=== PATIENT | female | born 1950 | race Caucasian/White ===

== ENCOUNTER → 2016-09-08 | Outpatient (CLI) | payer OTHER, MEDICAID ==
[2016-05-29 16:08] VITALS: BP 170/105
--- NOTE | 2016-09-09 06:56 | CT ---
HISTORY: Neck pain, cervical spondylosis Study: CT cervical spine without contrast Comparison: None Technique: Axial non contrast images with coronal and sagittal reformats. Dose reduction procedures were used with MA/kv adjusted for body size. Findings: The prevertebral soft tissues are normal. The alignment is normal. The vertebral bodies are of avera ge height. Degenerative disc disease is present at C4-5 and C5-6. The pedicles, spinous processes, a nd posterior elements are intact. Spondylitic foraminal narrowing is present on the left at C4-5 and C5-6. Minimal spondylitic canal stenosis is present also at those levels. Atlantoaxial degenerative joint disease is present. Bilateral uncovertebral joint degenerative joint disease is present C4-5 C5-6. Diffuse bilateral facet degenerative joint disease is present. There are no obvious disc protr usions however CT of the cervical spine is not adequate for the evaluation of cervical disc disease and if cervical disc disease is a clinical consideration MRI would be of further diagnostic value. IMPRESSION: Degenerative disc disease, bilateral uncovertebral joint degenerative joint disease C4-5 C5-6 Spondylitic foraminal narrowing on the left C4-5, C5-6. Mild spondylitic canal stenosis C4-5, C5-6 Facet degenerative joint disease Reported By:
== END ==
LOC: RAD 13:02
PROVIDERS: ATTEND Physician Assistant Surgical
DX: M47.812 Spondylosis without myelopathy or radiculopathy, cervical region (principal)
CPT/HCPCS: 72125

== ENCOUNTER → 2017-03-27 | Outpatient (CLI) | payer OTHER, MEDICAID ==
[2016-05-29 16:08] VITALS: BP 170/105
[2017-03-27 14:07] LABS: BASOPHILS # (AUTO) 0.1 X10^3/uL (0.0-0.1); EOSINOPHILS # (AUTO) 0.2 x10^3/uL (0.0-0.2); EOSINOPHILS % (AUTO) 3.3 % (0.9-2.9); HEMATOCRIT 40.2 % (36.0-47.0); HEMOGLOBIN 13.9 g/dL (12.0-16.0); LYMPHOCYTES # (AUTO) 1.4 X10^3/uL (1.3-2.9); LYMPHOCYTES % (AUTO) 27.3 % (21.0-51.0); MEAN CORPUSCULAR HEMOGLOBIN 31.8 pg (27.0-34.0); MEAN CORPUSCULAR HGB CONC 34.6 g/dL (33.0-35.0); MEAN CORPUSCULAR VOLUME 91.7 fL (80.0-100.0); MEAN PLATELET VOLUME 7.8 fL (7.4-11.0); MONOCYTES # (AUTO) 0.4 x10^3/uL (0.3-0.8); MONOCYTES % (AUTO) 7.1 % (0.0-13.0); NEUTROPHILS # (AUTO) 3.2 x10^3/uL (2.2-4.8); NEUTROPHILS % (AUTO) 61.3 % (42.0-75.0); PLATELET COUNT 259 X10^3/uL (150.0-450.0); RED BLOOD COUNT 4.38 X10^6/uL (3.5-5.4); RED CELL DISTRIBUTION WIDTH 13.1 % (11.6-16.5); WHITE BLOOD COUNT 5.2 X10^3/uL (3.6-10.0)
[2017-03-27 14:17] LABS: ALANINE AMINOTRANSFERASE 15 Units/L (12-78); ALBUMIN 4.2 g/dL (3.4-5.0); ALKALINE PHOSPHATASE 122 Units/L (46-116); ASPARTATE AMINO TRANSFERASE 17 Units/L (15-37); BLOOD UREA NITROGEN 6 mg/dL (7-18); CALCIUM 9.3 mg/dL (8.5-10.1); CHLORIDE 92 mmol/L (98-107); CREATININE 0.55 mg/dL (0.55-1.02); SODIUM 132 mmol/L (136-145); eGFR BLACK RACES > 60 (>60); eGFR NON BLACK RACES > 60 (>60)
[2017-04-01 04:39] LABS: KAPPA LIGHT CHAINS 0.93 mg/dL (0.33-1.94); LAMBDA LIGHT CHAIN 0.84 mg/dL (0.57-2.63)
[2017-04-01 06:09] LABS: KAPPA/LAMBDA RATIO 1.11 (0.26-1.65)
[2017-04-01 16:08] LABS: ALBUMIN (SPEP) 4.93 g/dL (3.75-5.01); ALPHA-1 (SPEP) 0.45 g/dL (0.19-0.46); ALPHA-2 (SPEP) 0.88 g/dL (0.48-1.05); GAMMA (SPEP) 0.85 g/dL (0.62-1.51)
== END ==
LOC: LAB 13:35
PROVIDERS: ATTEND Internal Medicine Medical Oncology
DX: D47.2 Monoclonal gammopathy (principal)
CPT/HCPCS: 36415; 80053; 83883; 84165; 85025

== ENCOUNTER → 2017-03-30 | Outpatient (CLI) | payer OTHER, MEDICAID ==
[2016-05-29 16:08] VITALS: BP 170/105
== END ==
LOC: LAB 09:55
PROVIDERS: ATTEND Internal Medicine Rheumatology
DX: R77.8 Other specified abnormalities of plasma proteins (principal)
CPT/HCPCS: 84166

== ENCOUNTER → 2017-07-14 | Outpatient (CLI) | payer OTHER, MEDICAID ==
[2016-05-29 16:08] VITALS: BP 170/105
--- NOTE | 2017-07-15 08:45 | VAS ---
HISTORY: Carotid bruit Study: Carotid ultrasound Comparison: None Technique: Multiple vanegas scale and color flow Doppler images of the right and left carotid arterial s ystem were obtained. The vertebral arterial system was evaluated as well. Findings: The peak systolic velocity of the right ICA is 74 cm/sec. The peak systolic velocity of the left ICA is 99 cm/sec. The ICA/CCA ratio on the right is 0.9. The ICA/CCA ratio on the left is 1.3. Bilateral antegrade vertebral flow was noted. IMPRESSION: 1. No hemodynamically significant stenosis is appreciated. Reported By:
== END ==
LOC: RAD 09:57
PROVIDERS: ATTEND Internal Medicine Cardiovascular Disease
DX: R09.89 Other specified symptoms and signs involving the circulatory and respiratory systems (principal)
CPT/HCPCS: 93880

== ENCOUNTER → 2017-10-03 | Outpatient (CLI) | payer OTHER, MEDICAID ==
[2016-05-29 16:08] VITALS: BP 170/105
[2017-10-03 13:07] LABS: EOSINOPHILS # (AUTO) 0.2 x10^3/uL (0.0-0.2); EOSINOPHILS % (AUTO) 5.9 % (0.9-2.9); HEMATOCRIT 40.2 % (36.0-47.0); HEMOGLOBIN 13.9 g/dL (12.0-16.0); LYMPHOCYTES # (AUTO) 1.3 X10^3/uL (1.3-2.9); LYMPHOCYTES % (AUTO) 32.8 % (21.0-51.0); MEAN CORPUSCULAR HEMOGLOBIN 31.4 pg (27.0-34.0); MEAN CORPUSCULAR HGB CONC 34.6 g/dL (33.0-35.0); MEAN CORPUSCULAR VOLUME 90.7 fL (80.0-100.0); MEAN PLATELET VOLUME 7.4 fL (7.4-11.0); MONOCYTES # (AUTO) 0.3 x10^3/uL (0.3-0.8); NEUTROPHILS # (AUTO) 2.2 x10^3/uL (2.2-4.8); NEUTROPHILS % (AUTO) 53.3 % (42.0-75.0); PLATELET COUNT 255 X10^3/uL (150.0-450.0); RED BLOOD COUNT 4.44 X10^6/uL (3.5-5.4); RED CELL DISTRIBUTION WIDTH 12.9 % (11.6-16.5); WHITE BLOOD COUNT 4.1 X10^3/uL (3.6-10.0)
[2017-10-03 13:22] LABS: ALANINE AMINOTRANSFERASE 16 Units/L (12-78); ALBUMIN 4.1 g/dL (3.4-5.0); ALKALINE PHOSPHATASE 91 Units/L (46-116); ASPARTATE AMINO TRANSFERASE 15 Units/L (15-37); BLOOD UREA NITROGEN 7 mg/dL (7-18); CALCIUM 8.5 mg/dL (8.5-10.1); CARBON DIOXIDE 36.9 mmol/L (21-32); CHLORIDE 99 mmol/L (98-107); CREATININE 0.52 mg/dL (0.55-1.02); SODIUM 138 mmol/L (136-145); TOTAL PROTEIN 7.6 g/dL (6.4-8.2); eGFR BLACK RACES > 60 (>60); eGFR NON BLACK RACES > 60 (>60)
== END ==
LOC: LAB 12:43
PROVIDERS: ATTEND Internal Medicine Medical Oncology
DX: D47.2 Monoclonal gammopathy (principal)
CPT/HCPCS: 36415; 80053; 83883; 84165; 85025

== ENCOUNTER 2017-10-25 16:43 | Inpatient (IN) ==
[2017-10-25 17:17] LABS: BASOPHILS % (AUTO) 0.9 % (0.2-1.0); EOSINOPHILS # (AUTO) 0.1 x10^3/uL (0.0-0.2); EOSINOPHILS % (AUTO) 1.8 % (0.9-2.9); HEMOGLOBIN 12.9 g/dL (12.0-16.0); LYMPHOCYTES # (AUTO) 0.7 X10^3/uL (1.3-2.9); LYMPHOCYTES % (AUTO) 14.6 % (21.0-51.0); MEAN CORPUSCULAR HEMOGLOBIN 31.8 pg (27.0-34.0); MEAN CORPUSCULAR HGB CONC 34.9 g/dL (33.0-35.0); MEAN CORPUSCULAR VOLUME 91.3 fL (80.0-100.0); MEAN PLATELET VOLUME 8.1 fL (7.4-11.0); MONOCYTES # (AUTO) 0.7 x10^3/uL (0.3-0.8); MONOCYTES % (AUTO) 13.1 % (0.0-13.0); NEUTROPHILS # (AUTO) 3.5 x10^3/uL (2.2-4.8); NEUTROPHILS % (AUTO) 69.6 % (42.0-75.0); PLATELET COUNT 193 X10^3/uL (150.0-450.0); RED BLOOD COUNT 4.05 X10^6/uL (3.5-5.4); RED CELL DISTRIBUTION WIDTH 12.6 % (11.6-16.5)
[2017-10-25] MEDS ORDERED: DUONEB 0.5 MG/3 MG ONE (17:23)
[2017-10-25] MEDS ORDERED: DUONEB 0.5 MG/3 MG NEB ONE ×2 (17:27→18:38)
[2017-10-25 17:34] LABS: ALANINE AMINOTRANSFERASE 11 Units/L (12-78); ALBUMIN 3.6 g/dL (3.4-5.0); ALKALINE PHOSPHATASE 99 Units/L (46-116); ASPARTATE AMINO TRANSFERASE 13 Units/L (15-37); BLOOD UREA NITROGEN 5 mg/dL (7-18); CALCIUM 7.9 mg/dL (8.5-10.1); CARBON DIOXIDE 38.4 mmol/L (21-32); CHLORIDE 93 mmol/L (98-107); COR NA(FOR HYPERGLY) 136 mmol/L (136-145); CREATININE 0.47 mg/dL (0.55-1.02); SODIUM 135 mmol/L (136-145); eGFR NON BLACK RACES > 60 (>60)
[2017-10-25] MEDS ORDERED: TORADOL 15 MG VIAL IVP ONE (18:03)
[2017-10-25] MEDS ORDERED: TORADOL 15 MG VIAL ONE (18:05)
[2017-10-25] MEDS ORDERED: CATAPRES TAB 0.1 MG PO ONE (18:23)
[2017-10-25] MEDS ORDERED: CATAPRES TAB 0.1 MG ONE (18:24)
[2017-10-25] MEDS ORDERED: TORADOL 60 MG VIAL IM ONE (20:22)
--- NOTE | 2017-10-25 20:24 | DR.GENAD ---
HPI - PCP Primary Care Physician: carley - HPI Comment HPI Comment: NO FEVER. COUGHING, PRODUCTIVE, WHITISH SPUTUM. - Complaint/Symptoms Chief Complaint Doctors Comments: OXYGEN DROP THIS AM, PATIENT SOB ABS FEEL SICK. Chief Complaint:: pt stated this morning her 02 droped to the 80s and she felt bad. she called ems when her 02 was around 90 she stated she didnt want to go to sleep tonight and her o2 get lower again. - Nurses notes reviewed Nurses Notes Review: Yes - Source History Provided: Patient, EMS - Mode of Arrival Mode of Arrival: EMS - Timing Onset of Chief Complaint: 10/25/17 Came on: Suddenly - Duration Duration: Constant Duration: Hours - Severity Severity: Moderate PMH - PMH Past Medical History: Yes Past Medical History: Arthritis, COPD, Coronary Artery Disease, Hypertension Past Surgical History: Yes Surgical History: Angioplasty/Stents, , Other - Family History History of Family Medical Conditions: Yes Family Medical History: Diabetes Mellitus, Heart Failure, Hypertension - Social History Does any household member use tobacco: No Alcohol Use: None Do you use any recreational Drugs:: No Lives With: Alone Lives Where: Home - infectious screening In the last 2 months have you had wt loss of >10#?: NO Have you had fever, night sweats or hemotysis?: No Have you traveled outside the country in the last 6 months?: No Isolation: Standard ROS - Review of Systems Constitutional: No Symptoms Reported Eyes: No Symptoms Reported ENTM: Nose Congestion. negative: Ear Pain, Nose Discharge, Throat Pain Respiratoy: Productive Cough, Short of Breath, Wheezing. negative: Hemoptysis Cardiovascular: No Symptoms Reported Gastrointestinal/Abdominal: No Symptoms Reported Genitourinary: No Symptoms Reported Neurological: No Symptoms Reported Musculoskeletal: No Symptoms Reported Integumentary: No Symptoms Reported Hematologic/Lymphatic: No Symptoms Reported Endocrine: No Symptoms Reported All Other Systems: Reviewed and Negative PE - General Limitations: No Limitations General Appearance: Alert - Head Head Exam: Normal Inspection - Eyes Eye exam: Normal Appearance - ENT ENT Exam: Normal External Ear Exam TM/Canal Exam: Bilateral Normal Nose Exam: Normal Nose Exam Mouth Exam: Normal Inspection Throat Exam: Normal Inspection - Neck Neck Exam: Trachea Midline - Chest Chest Inspection: Symmetric Chest Wall Rise - Respiratory Respiratory Exam: Normal Lung Sounds Bilat Respiratory Exam: Bilateral Clear to Auscultation - Abdominal Exam Abdominal Exam: Normal Inspection, Normal Bowel Sounds, Soft - Extremities Extremities Exam: Normal Inspection - Back Back Exam: Normal Inspection - Neurologic Neurological Exam: Alert, Oriented X3 - Psychiatric Psychiatric Exam: Normal Affect, Normal Mood - Skin Skin Exam: Normal Color - Vital Signs Vitals: Temperature 98.9 F Pulse Rate 88 Respiratory Rate 16 Blood Pressure [Right Arm] 147/75 Blood Pressure [Left Arm] 144/78 Blood Pressure 177/85 O2 Sat by Pulse Oximetry 94 MDM - Differential Diagnosis Differential Diagnosis: PNEUMONIA, BRONCHITIS HYPOXIA, COPD EXACERBATION. Course - Treatment Treatment: SEE ORDERS. - Education/Counseling Education/Counseling: Patient, Education Educated On: Diagnosis, Needs for Follow Up ROR - Labs Reviewed Laboratory Results Reviewed?: Yes Result Diagrams: 10/26/17 04:58 10/26/17 04:58 - XRAY XRAY Interpreted by: Radiologist - EKG Rhythm: NSR (EKG NOTED) - Labs Reviewed Laboratory: WBC 5.0 X10^3/uL (3.6-10.0) 10/25/17 17:03 RBC 4.05 X10^6/uL (3.5-5.4) 10/25/17 17:03 Hgb 12.9 g/dL (12.0-16.0) 10/25/17 17:03 Hct 37.0 % (36.0-47.0) 10/25/17 17:03 MCV 91.3 fL (80.0-100.0) 10/25/17 17:03 MCH 31.8 pg (27.0-34.0) 10/25/17 17:03 MCHC 34.9 g/dL (33.0-35.0) 10/25/17 17:03 RDW 12.6 % (11.6-16.5) 10/25/17 17:03 Plt Count 193 X10^3/uL (150.0-450.0) 10/25/17 17:03 MPV 8.1 fL (7.4-11.0) 10/25/17 17:03 Neut % (Auto) 69.6 % (42.0-75.0) 10/25/17 17:03 Lymph % (Auto) 14.6 % (21.0-51.0) L 10/25/17 17:03 [place] % (Auto) 13.1 % (0.0-13.0) H 10/25/17 17:03 Eos % (Auto) 1.8 % (0.9-2.9) 10/25/17 17:03 Baso % (Auto) 0.9 % (0.2-1.0) 10/25/17 17:03 Neut # (Auto) 3.5 x10^3/uL (2.2-4.8) 10/25/17 17:03 Lymph # (Auto) 0.7 X10^3/uL (1.3-2.9) L 10/25/17 17:03 [place] # (Auto) 0.7 x10^3/uL (0.3-0.8) 10/25/17 17:03 Eos # (Auto) 0.1 x10^3/uL (0.0-0.2) 10/25/17 17:03 Baso # (Auto) 0.0 X10^3/uL (0.0-0.1) 10/25/17 17:03 Absolute Nucleated RBC 0.1 /100WBC 10/25/17 17:03 Sodium 135 mmol/L (136-145) L 10/25/17 17:03 Corrected Sodium 136 mmol/L (136-145) 10/25/17 17:03 Potassium 4.1 mmol/L (3.5-5.1) 10/25/17 17:03 Chloride 93 mmol/L (98-107) L 10/25/17 17:03 Carbon Dioxide 38.4 mmol/L (21-32) H 10/25/17 17:03 BUN 5 mg/dL (7-18) L 10/25/17 17:03 Creatinine 0.47 mg/dL (0.55-1.02) L 10/25/17 17:03 Est GFR (MDRD) Af Amer > 60 (>60) 10/25/17 17:03 Est GFR (MDRD) Non-Af > 60 (>60) 10/25/17 17:03 Glucose 123 mg/dL (65-99) H 10/25/17 17:03 Calcium 7.9 mg/dL (8.5-10.1) L 10/25/17 17:03 Corrected Calcium TNP 10/25/17 17:03 Total Bilirubin 0.20 mg/dL (0.2-1.0) 10/25/17 17:03 AST 13 Units/L (15-37) L 10/25/17 17:03 ALT 11 Units/L (12-78) L 10/25/17 17:03 Alkaline Phosphatase 99 Units/L (46-116) 10/25/17 17:03 C-Reactive Protein 55.50 mg/L (0-3.0) H 10/25/17 17:03 Total Protein 7.0 g/dL (6.4-8.2) 10/25/17 17:03 Albumin 3.6 g/dL (3.4-5.0) 10/25/17 17:03 Globulin 3.4 g/dL (2.5-4.5) 10/25/17 17:03 Albumin/Globulin Ratio 1.1 Ratio (1.1-2.1) 10/25/17 17:03 - Diagnosis Discharge Problem: COPD exacerbation Hypertension Qualifiers: Hypertension type: unspecified Qualified Code(s): I10 - Essential (primary) hypertension - Discharge Plan Disposition: ADMITTED INPATIENT Condition: Stable
[2017-10-25] MEDS ORDERED: TORADOL 60 MG VIAL ONE (20:32)
[2017-10-25] MEDS ORDERED: NIFEDIPINE CAP 10 MG ONE (20:38)
[2017-10-25] MEDS ORDERED: NIFEDIPINE CAP 10 MG PO ONE (20:43)
[2017-10-25 21:18] LABS: CKMB % 3.3 % (<4); CREATINE KINASE 73 Units/L (26-192); CREATINE KINASE MB 2.4 ng/mL (0-4.0); TROPONIN I < 0.02 ng/mL (0-1.5)
[2017-10-25] MEDS ORDERED: SOLU-Medrol 40 MG VIAL IVP ONE (21:23)
[2017-10-25 21:24] LABS: ABG BASE EXCESS 15.3 mmol/L (-2.0-2.0)
[2017-10-25 21:26] LABS: ABG ALLEN TEST POS; ABG HCO3 42.5 mmol/L (22-26)
[2017-10-25] MEDS ORDERED: SOLU-Medrol 40 MG VIAL ONE (21:27)
[2017-10-25] MEDS ORDERED: MORPHINE SULFATE INJ 2 MG INJ IVP PRN (22:30)
[2017-10-25] MEDS: NS 1000 ML 1,000 ML IV SCH (23:51)
[2017-10-25 23:57] LABS: CKMB % 3.3 % (<4); CREATINE KINASE 105 Units/L (26-192); CREATINE KINASE MB 3.5 ng/mL (0-4.0); TROPONIN I < 0.02 ng/mL (0-1.5)
[2017-10-26] MEDS ORDERED: VALIUM INJ IVP ONE (00:17)
[2017-10-26] MEDS ORDERED: XANAX ONE (00:19)
[2017-10-26] MEDS ORDERED: XANAX PO ONE (00:20)
[2017-10-26 04:19] VITALS: BMI 18.9
[2017-10-26 06:14] LABS: BASOPHILS % (AUTO) 0.3 % (0.2-1.0); EOSINOPHILS % (AUTO) 0.1 % (0.9-2.9); HEMATOCRIT 38.1 % (36.0-47.0); HEMOGLOBIN 13.4 g/dL (12.0-16.0); LYMPHOCYTES # (AUTO) 0.2 X10^3/uL (1.3-2.9); LYMPHOCYTES % (AUTO) 7.4 % (21.0-51.0); MEAN CORPUSCULAR HEMOGLOBIN 31.6 pg (27.0-34.0); MEAN CORPUSCULAR HGB CONC 35.1 g/dL (33.0-35.0); MEAN CORPUSCULAR VOLUME 89.9 fL (80.0-100.0); MEAN PLATELET VOLUME 8.5 fL (7.4-11.0); MONOCYTES # (AUTO) 0.1 x10^3/uL (0.3-0.8); MONOCYTES % (AUTO) 2.4 % (0.0-13.0); NEUTROPHILS # (AUTO) 2.9 x10^3/uL (2.2-4.8); NEUTROPHILS % (AUTO) 89.8 % (42.0-75.0); PLATELET COUNT 205 X10^3/uL (150.0-450.0); RED BLOOD COUNT 4.24 X10^6/uL (3.5-5.4); RED CELL DISTRIBUTION WIDTH 12.9 % (11.6-16.5); WHITE BLOOD COUNT 3.2 X10^3/uL (3.6-10.0)
[2017-10-26 06:58] LABS: ALANINE AMINOTRANSFERASE 11 Units/L (12-78); ALBUMIN 3.7 g/dL (3.4-5.0); ALKALINE PHOSPHATASE 100 Units/L (46-116); ASPARTATE AMINO TRANSFERASE < 6 Units/L (15-37); BLOOD UREA NITROGEN 5 mg/dL (7-18); CALCIUM 8.1 mg/dL (8.5-10.1); CARBON DIOXIDE 39.1 mmol/L (21-32); CHLORIDE 93 mmol/L (98-107); CHOL/HDL RATIO 2.3 (0.0-5.0); CHOLESTEROL 175 mg/dL (0-200); CKMB % 3.3 % (<4); COR NA(FOR HYPERGLY) 136 mmol/L (136-145); CREATINE KINASE 114 Units/L (26-192); CREATINE KINASE MB 3.8 ng/mL (0-4.0); HDL CHOLESTEROL 76 mg/dL (40-60); MAGNESIUM 1.8 mg/dL (1.7-2.9); SODIUM 135 mmol/L (136-145); TOTAL PROTEIN 7.3 g/dL (6.4-8.2); TRIGLYCERIDES 57 mg/dL (0-150); TROPONIN I < 0.02 ng/mL (0-1.5); eGFR NON BLACK RACES > 60 (>60)
[2017-10-26] MEDS: DUONEB 0.5 MG/3 MG NEB SCH ×2 (12:15→17:07)
[2017-10-26] MEDS ORDERED: ZESTRIL TAB 20 MG ONE (12:46)
[2017-10-26] MEDS: ROCEPHIN 1 GRAM IV PREMIX IV SCH (12:47)
[2017-10-26] MEDS: NORVASC TAB 5 MG PO SCH (12:48)
[2017-10-26] MEDS: ZESTRIL TAB 20 MG PO SCH (12:48)
[2017-10-26] MEDS: SOLU-Medrol 125 MG VIAL IVP SCH ×3 (12:48→21:01)
[2017-10-26] MEDS: NORCO 10/325 TAB PO PRN (17:31)
[2017-10-26] MEDS: NS 1000 ML 1,000 ML IV SCH (17:32)
[2017-10-26] MEDS: XANAX PO PRN (17:32)
[2017-10-27] MEDS: DUONEB 0.5 MG/3 MG NEB SCH ×5 (01:10→16:00)
[2017-10-27] MEDS: NS 1000 ML 1,000 ML IV SCH ×2 (02:41→16:32)
[2017-10-27] MEDS: NORCO 10/325 TAB PO PRN ×3 (05:31→22:42)
[2017-10-27] MEDS: SOLU-Medrol 125 MG VIAL IVP SCH ×3 (05:31→21:40)
[2017-10-27] MEDS ORDERED: ZESTRIL TAB 20 MG ONE (09:12)
[2017-10-27] MEDS: ZESTRIL TAB 20 MG PO SCH (09:14)
[2017-10-27] MEDS: ROCEPHIN 1 GRAM IV PREMIX IV SCH (09:15)
[2017-10-27] MEDS: NORVASC TAB 5 MG PO SCH (09:15)
[2017-10-27] MEDS: XANAX PO PRN ×2 (09:15→17:52)
[2017-10-27] MEDS ORDERED: TYLENOL 325 MG TAB PO PRN (10:11)
[2017-10-27] MEDS: NICOTINE PATCH TD SCH (10:59)
[2017-10-27] MEDS ORDERED: RESTORIL CAP 15 MG PO PRN (22:47)
[2017-10-28] MEDS: DUONEB 0.5 MG/3 MG NEB SCH ×3 (01:10→06:03)
[2017-10-28] MEDS: NS 1000 ML 1,000 ML IV SCH (05:03)
[2017-10-28] MEDS: SOLU-Medrol 125 MG VIAL IVP SCH (05:40)
[2017-10-28] MEDS: XANAX PO PRN (05:43)
[2017-10-28] MEDS ORDERED: ZESTRIL TAB 20 MG ONE (08:36)
[2017-10-28] MEDS: ROCEPHIN 1 GRAM IV PREMIX IV SCH (08:43)
[2017-10-28] MEDS: NICOTINE PATCH TD SCH (08:43)
[2017-10-28] MEDS: NORVASC TAB 5 MG PO SCH (08:43)
[2017-10-28] MEDS: NORCO 10/325 TAB PO PRN (08:43)
[2017-10-28] MEDS: ZESTRIL TAB 20 MG PO SCH (08:43)
[2017-10-28 14:51] VITALS: BP 157/72
== END 2017-10-28 15:10 | disposition home or self-care (01) | DRG 192 ==
LOC: ER 16:43 → MED/SURG 22:24
PROVIDERS: ADMIT Internal Medicine; ATTEND Internal Medicine
DX: I25.10 Atherosclerotic heart disease of native coronary artery without angina pectoris; R94.31 Abnormal electrocardiogram [ECG] [EKG]; R79.82 Elevated C-reactive protein (CRP); M81.8 Other osteoporosis without current pathological fracture; I10 Essential (primary) hypertension; R06.02 Shortness of breath; J44.1 Chronic obstructive pulmonary disease with (acute) exacerbation; M41.86 Other forms of scoliosis, lumbar region; J20.8 Acute bronchitis due to other specified organisms
CPT/HCPCS: 36415; 36600; 80053; 80061; 82550; 82553; 82803; 83735; 84484; 85025; 86140; 87070; 87205; 93005; 93010; 94640; 94669; 94760; 96365; 96374; 96375; 99282; 99284; A4222; J0696; J1885; J2270; J2920; J2930; J3360; J3490; J7030; J7620

== ENCOUNTER 2019-04-06 22:08 | Inpatient (IN) ==
[2019-04-06] MEDS ORDERED: DUONEB 0.5 MG/3 MG NEB ONE (22:23)
[2019-04-06] MEDS ORDERED: DUONEB 0.5 MG/3 MG ONE (22:30)
--- NOTE | 2019-04-06 22:41 | RAD ---
Chest, 1 view Indication: Shortness of breath, cough, congestion Comparison: 10/23/2017 Findings: The left lung apex was excluded. The cardiac silhouette size and aortic tortuosity are similar to prior. There are chronic interstitial changes of the lungs with hyperinflation suggestive for COPD. There are patchy bilateral infiltrates, most marked within the right upper lobe and left mid to lower lung. No significant pleural effusion or pneumothorax. Impression: Patchy bilateral lung opacities most suggestive for multifocal pneumonia, although asymmetric edema could have a similar appearance. Chronic changes of COPD. Reported By:
[2019-04-06 22:42] LABS: BASOPHILS % (AUTO) 0.2 % (0.2-1.0); HEMATOCRIT 37.3 % (36.0-47.0); HEMOGLOBIN 12.8 g/dL (12.0-16.0); LYMPHOCYTES # (AUTO) 1.1 X10^3/uL (1.3-2.9); LYMPHOCYTES % (AUTO) 7.8 % (21.0-51.0); MEAN CORPUSCULAR HEMOGLOBIN 31.1 pg (27.0-34.0); MEAN CORPUSCULAR HGB CONC 34.2 g/dL (33.0-35.0); MEAN CORPUSCULAR VOLUME 90.9 fL (80.0-100.0); MEAN PLATELET VOLUME 7.4 fL (7.4-11.0); MONOCYTES # (AUTO) 1.6 x10^3/uL (0.3-0.8); MONOCYTES % (AUTO) 11.4 % (0.0-13.0); NEUTROPHILS # (AUTO) 11.5 x10^3/uL (2.2-4.8); NEUTROPHILS % (AUTO) 80.6 % (42.0-75.0); PLATELET COUNT 481 X10^3/uL (150.0-450.0); RED CELL DISTRIBUTION WIDTH 12.7 % (11.6-16.5); WHITE BLOOD COUNT 14.3 X10^3/uL (3.6-10.0)
--- NOTE | 2019-04-06 23:06 | DR.SOBA ---
HPI - Time Seen Time seen: 22:25 - Primary Care Physician Primary Care Physician: LENA - Complaints Chief Complaint Doctors Comments: Cough, cold, congestion and sob w/wheezing for the past 2-3 days which has been worsening causing presentation; she wears oxygen 15/12 and it had to be turned up;no fever/chills/n/v/d. Chief Complaint:: PT C/O C/C/C X 3 DAYS AND SOB X 2 DAYS - Reviewed Nurses Notes Reviewed: Yes - Source History Provided: Patient - Mode of Arrival Mode of Arrival: Ambulatory - Timing Onset of Chief Complaint: 04/04/19 PMH - PMH Past Medical History: Yes Past Medical History: Arthritis, COPD, Coronary Artery Disease, Depression, Hypertension Past Surgical History: Yes Surgical History: Angioplasty/Stents, , Other - Family History History of Family Medical Conditions: Yes Family Medical History: Diabetes Mellitus, Heart Failure, Hypertension - Social History Type of Tobacco Use: Cigarettes Does any household member use tobacco: No Alcohol Use: None Do you use any recreational Drugs:: No Lives With: Family Lives Where: Home - infectious screening In the last 2 months have you had wt loss of >10#?: NO Have you had fever, night sweats or hemotysis?: No Have you traveled outside the country in the last 6 months?: No Isolation: Standard ROS - Review of Systems Constitutional: See HPI, Malaise, Weakness Eyes: No Symptoms Reported ENTM: No Symptoms Reported Respiratoy: See HPI, Short of Breath, Wheezing Cardiovascular: See HPI, Chest Pain Gastrointestinal/Abdominal: No Symptoms Reported Genitourinary: No Symptoms Reported Neurological: No Symptoms Reported Musculoskeletal: Joint Pain Integumentary: No Symptoms Reported Hematologic/Lymphatic: No Symptoms Reported Psychiatric: No Symptoms Reported PE - General Limitations: No Limitations General Appearance: Alert, In No Apparent Distress - Head Head Exam: Normal Inspection, Atraumatic - Eyes Eye exam: Normal Appearance - ENT ENT Exam: Normal Exam, Normal Oropharynx - Neck Neck Exam: Normal Inspection - Respiratory Respiratory Exam: Normal Lung Sounds Bilat Respiratory Exam: Bilateral Clear to Auscultation, Bilateral Decreased Breath Sounds - Cardiovascular Cardiovascular Exam: Regular Rate, Normal Rhythm - Abdominal Exam Abdominal Exam: Normal Inspection, Normal Bowel Sounds, Soft - Back Back Exam: Normal Inspection - Neurologic Neurological Exam: Alert, Oriented X3 - Psychiatric Psychiatric Exam: Normal Affect - Skin Skin Exam: Warm, Dry - Vital Signs Vitals: Temperature 98.5 F Pulse Rate [Apical] 106 Pulse Rate 95 Respiratory Rate 22 Blood Pressure [Right Arm] 157/72 Blood Pressure [Left Arm] 160/95 Blood Pressure 148/75 O2 Sat by Pulse Oximetry 98 ROR - Labs Reviewed Laboratory Results Reviewed?: Yes Result Diagrams: 04/06/19 22:36 04/06/19 22:36 - Labs Reviewed Laboratory: WBC 14.3 X10^3/uL (3.6-10.0) H 04/06/19 22:36 RBC 4.10 X10^6/uL (3.5-5.4) 04/06/19 22:36 Hgb 12.8 g/dL (12.0-16.0) 04/06/19 22:36 Hct 37.3 % (36.0-47.0) 04/06/19 22:36 MCV 90.9 fL (80.0-100.0) 04/06/19 22:36 MCH 31.1 pg (27.0-34.0) 04/06/19 22:36 MCHC 34.2 g/dL (33.0-35.0) 04/06/19 22:36 RDW 12.7 % (11.6-16.5) 04/06/19 22:36 Plt Count 481 X10^3/uL (150.0-450.0) H 04/06/19 22:36 MPV 7.4 fL (7.4-11.0) 04/06/19 22:36 Neut % (Auto) 80.6 % (42.0-75.0) H 04/06/19 22:36 Lymph % (Auto) 7.8 % (21.0-51.0) L 04/06/19 22:36 [place] % (Auto) 11.4 % (0.0-13.0) 04/06/19 22:36 Eos % (Auto) 0.0 % (0.9-2.9) L 04/06/19 22:36 Baso % (Auto) 0.2 % (0.2-1.0) 04/06/19 22:36 Neut # (Auto) 11.5 x10^3/uL (2.2-4.8) H 04/06/19 22:36 Lymph # (Auto) 1.1 X10^3/uL (1.3-2.9) L 04/06/19 22:36 [place] # (Auto) 1.6 x10^3/uL (0.3-0.8) H 04/06/19 22:36 Eos # (Auto) 0.0 x10^3/uL (0.0-0.2) 04/06/19 22:36 Baso # (Auto) 0.0 X10^3/uL (0.0-0.1) 04/06/19 22:36 Absolute Nucleated RBC 0.0 /100WBC 04/06/19 22:36 Sodium 132 mmol/L (136-145) L 04/06/19 22:36 Corrected Sodium 133 mmol/L (136-145) L 04/06/19 22:36 Potassium 3.8 mmol/L (3.5-5.1) 04/06/19 22:36 Chloride 90 mmol/L (98-107) L 04/06/19 22:36 Carbon Dioxide 39.9 mmol/L (21-32) H 04/06/19 22:36 BUN 17 mg/dL (7-18) 04/06/19 22:36 Creatinine 0.45 mg/dL (0.55-1.02) L 04/06/19 22:36 Est GFR (MDRD) Af Amer > 60 (>60) 04/06/19 22:36 Est GFR (MDRD) Non-Af > 60 (>60) 04/06/19 22:36 Glucose 133 mg/dL (65-99) H 04/06/19 22:36 Calcium 9.4 mg/dL (8.5-10.1) 04/06/19 22:36 Corrected Calcium 10.0 mg/dL (8.5-10.1) 04/06/19 22:36 Total Bilirubin 0.30 mg/dL (0.2-1.0) 04/06/19 22:36 AST 20 Units/L (15-37) 04/06/19 22:36 ALT 9 Units/L (12-78) L 04/06/19 22:36 Alkaline Phosphatase 156 Units/L (46-116) H 04/06/19 22:36 Creatine Kinase 72 Units/L (26-192) 04/06/19 22:36 CK-MB (CK-2) 13.7 ng/mL (0-4.0) H* 04/06/19 22:36 CK/CKMB % Calc 19.0 % (<4) 04/06/19 22:36 Troponin I 1.19 ng/mL (0-1.5) 04/06/19 22:36 B-Natriuretic Peptide 2230 pg/mL (0-79) H* 04/06/19 22:36 Total Protein 7.3 g/dL (6.4-8.2) 04/06/19 22:36 Albumin 3.2 g/dL (3.4-5.0) L 04/06/19 22:36 Globulin 4.1 g/dL (2.5-4.5) 04/06/19 22:36 Albumin/Globulin Ratio 0.8 Ratio (1.1-2.1) L 04/06/19 22:36 Opioid - Opioid Risk Tool Age (Poncho box if 16-45): No Total: 0 Total Score Risk Category: Low Risk - Diagnosis Discharge Problem: Multifocal pneumonia CHF exacerbation Qualifiers: Heart failure type: unspecified Qualified Code(s): I50.9 - Heart failure, unspecified COPD (chronic obstructive pulmonary disease) Qualifiers: COPD type: COPD with acute exacerbation Qualified Code(s): J44.1 - Chronic obstructive pulmonary disease with (acute) exacerbation - Discharge Plan Disposition: ADMITTED INPATIENT Condition: Stable - Follow ups/Referrals Follow ups/Referrals: NFD,None [Primary Care Provider] - 3 days - Instructions Instructions: Community-Acquired Pneumonia, Adult
[2019-04-06 23:22] LABS: ALANINE AMINOTRANSFERASE 9 Units/L (12-78); ALBUMIN 3.2 g/dL (3.4-5.0); ALKALINE PHOSPHATASE 156 Units/L (46-116); ASPARTATE AMINO TRANSFERASE 20 Units/L (15-37); BLOOD UREA NITROGEN 17 mg/dL (7-18); CALCIUM 9.4 mg/dL (8.5-10.1); CHLORIDE 90 mmol/L (98-107); COR NA(FOR HYPERGLY) 133 mmol/L (136-145); CREATINE KINASE 72 Units/L (26-192); CREATININE 0.45 mg/dL (0.55-1.02); SODIUM 132 mmol/L (136-145); TOTAL PROTEIN 7.3 g/dL (6.4-8.2); TROPONIN I 1.19 ng/mL (0-1.5); eGFR NON BLACK RACES > 60 (>60)
[2019-04-06 23:26] LABS: CARBON DIOXIDE 39.9 mmol/L (21-32)
[2019-04-06 23:27] LABS: CREATINE KINASE MB 13.7 ng/mL (0-4.0)
[2019-04-07] MEDS ORDERED: SOLU-Medrol 125 MG VIAL IVP ONE (00:16)
[2019-04-07] MEDS ORDERED: LASIX IVP ONE ×2 (00:16→00:34)
[2019-04-07] MEDS ORDERED: ROCEPHIN VIAL 1 GRAM IV STA (00:17)
[2019-04-07] MEDS ORDERED: ZITHROMAX INJ 500 MG VIAL 500 MG in NS 250 ML IV 250 ML IV SCH ×2 (00:18→21:00)
[2019-04-07] MEDS ORDERED: NS 500 ML IV 500 ML IV ONE (00:34)
[2019-04-07] MEDS ORDERED: ZITHROMAX INJ 500 MG VIAL IV ONE (00:34)
[2019-04-07] MEDS ORDERED: SOLU-Medrol 125 MG VIAL ONE (00:34)
[2019-04-07] MEDS ORDERED: ROCEPHIN VIAL 1 GRAM ONE (00:35)
[2019-04-07] MEDS ORDERED: NS 250 ML IV 250 ML IV ONE (00:35)
[2019-04-07] MEDS: NS 500 ML IV 500 ML IV SCH (01:03)
[2019-04-07 01:45] LABS: BILIRUBIN,URINE NEGATIVE (NEGATIVE); BLOOD/HEMOGLOBIN,URINE 3+ (NEGATIVE); GLUCOSE, URINE 2+ (NEGATIVE); KETONES,URINE 1+ (NEGATIVE); LEUKOCYTE ESTERASE ,URINE 1+ (NEGATIVE); NITRITES,URINE NEGATIVE (NEGATIVE); PROTEIN,URINE 3+ (NEGATIVE); UROBILINOGEN,URINE NORMAL (NORMAL)
[2019-04-07 01:57] LABS: APPEARANCE,URINE CLOUDY (CLEAR); COLOR,URINE YELLOW (YELLOW)
[2019-04-07 01:58] LABS: BACTERIA,URINE 4+ /HPF (NEGATIVE); SQUAMOUS EPITHELIAL CELL,UR RARE /HPF (NEGATIVE)
[2019-04-07 02:56] VITALS: BMI 16.2
[2019-04-07] MEDS ORDERED: MILK OF MAGNESIA PO PRN (03:40)
[2019-04-07] MEDS ORDERED: NORCO 5/325 MG TAB PO PRN (04:44)
[2019-04-07 04:50] LABS: BASOPHILS % (AUTO) 0.2 % (0.2-1.0); HEMATOCRIT 38.8 % (36.0-47.0); HEMOGLOBIN 13.3 g/dL (12.0-16.0); LYMPHOCYTES # (AUTO) 0.2 X10^3/uL (1.3-2.9); LYMPHOCYTES % (AUTO) 1.8 % (21.0-51.0); MEAN CORPUSCULAR HGB CONC 34.3 g/dL (33.0-35.0); MEAN CORPUSCULAR VOLUME 93.1 fL (80.0-100.0); MEAN PLATELET VOLUME 8.3 fL (7.4-11.0); MONOCYTES # (AUTO) 0.4 x10^3/uL (0.3-0.8); PLATELET COUNT 479 X10^3/uL (150.0-450.0); RED BLOOD COUNT 4.17 X10^6/uL (3.5-5.4); RED CELL DISTRIBUTION WIDTH 12.4 % (11.6-16.5); WHITE BLOOD COUNT 13.7 X10^3/uL (3.6-10.0)
[2019-04-07 05:02] LABS: TROPONIN I 1.25 ng/mL (0-1.5)
[2019-04-07 05:04] LABS: ALANINE AMINOTRANSFERASE 11 Units/L (12-78); ALBUMIN 3.3 g/dL (3.4-5.0); ALKALINE PHOSPHATASE 157 Units/L (46-116); ASPARTATE AMINO TRANSFERASE 20 Units/L (15-37); BLOOD UREA NITROGEN 15 mg/dL (7-18); CALCIUM 9.2 mg/dL (8.5-10.1); CHLORIDE 88 mmol/L (98-107); COR CA(FOR HYPOALB) 9.8 mg/dL (8.5-10.1); COR NA(FOR HYPERGLY) 135 mmol/L (136-145); CREATININE 0.43 mg/dL (0.55-1.02); MAGNESIUM 1.9 mg/dL (1.7-2.9); SODIUM 134 mmol/L (136-145); TOTAL PROTEIN 7.7 g/dL (6.4-8.2); eGFR NON BLACK RACES > 60 (>60)
[2019-04-07 05:09] LABS: CREATINE KINASE MB 14.2 ng/mL (0-4.0)
[2019-04-07 05:11] LABS: CARBON DIOXIDE 41.9 mmol/L (21-32)
[2019-04-07 05:56] LABS: BAND NEUTROPHILS % 5 % (0-10); PLATELET MORPHOLOGY COMMENT NORMAL (NORMAL)
[2019-04-07] MEDS ORDERED: KLOR-CON PO PRN (05:59)
[2019-04-07] MEDS ORDERED: MICRO K EXTEN CAP 10 MEQ PO PRN (05:59)
[2019-04-07] MEDS ORDERED: K-RIDER 10 MEQ/NS 100 ML 10 MEQ/100 ML BAG IV PRN (05:59)
[2019-04-07] MEDS ORDERED: POTASSIUM CHLORIDE LIQ 20 MEQ UDC PO PRN (05:59)
[2019-04-07] MEDS ORDERED: POTASSIUM CHL 60 MEQ/NS 0.45% 500 ML IV PRN (05:59)
[2019-04-07] MEDS ORDERED: POTASSIUM CHL 40 MEQ/NS 0.45% 500 ML IV PRN (05:59)
[2019-04-07] MEDS ORDERED: K-DUR TAB 20 MEQ PO PRN (05:59)
[2019-04-07] MEDS ORDERED: PRAVASTATIN 10 MG PO SCH (09:00)
[2019-04-07] MEDS ORDERED: ZESTRIL TAB 10 MG PO SCH (09:00)
[2019-04-07] MEDS ORDERED: DUONEB 0.5 MG/3 MG NEB SCH (09:00)
[2019-04-07] MEDS ORDERED: NORVASC TAB 5 MG PO SCH (09:00)
[2019-04-07] MEDS ORDERED: DULOXETINE 20 MG PO SCH (09:00)
[2019-04-07] MEDS ORDERED: XANAX PO SCH (09:00)
[2019-04-07 09:28] LABS: ABG BASE EXCESS 23.7 mmol/L (-2.0-2.0); ABG HCO3 51.7 mmol/L (22-26)
[2019-04-07] MEDS ORDERED: NS 100 ML IV 100 ML IV ONE (09:30)
[2019-04-07 10:03] LABS: MYCOPLASMA PNEUMONIAE IGM AB NEGATIVE (NEGATIVE)
[2019-04-07] MEDS ORDERED: ZOFRAN INJ 4 MG VIAL IVP PRN (10:24)
[2019-04-07] MEDS: SINGULAIR TAB 10 MG PO SCH (10:25)
[2019-04-07] MEDS: SOMA TAB 350 MG PO SCH ×2 (10:26→21:19)
[2019-04-07] MEDS: ZANTAC PO SCH (10:26)
--- NOTE | 2019-04-07 10:26 | DR.H&P ---
H&P History & Physical for Day of: H&P Date: 04/07/19 Chief Complaint Chief Complaint: cough, SOB and congestion Allergies Allergies Allergy/AdvReac Type Severity Reaction Status Date / Time amoxicillin Allergy Verified 10/25/17 16:45 History of Present Illness History of Present Illness: Ms. Moore is a 69y/o female with Severe COPD on continuous home oxygen, CAD s/p PCI (~3 stents), last done in [place] 6 years ago, chronic neck and back pain on opiates, osteoporosis, scoliosis and severe kyphosis presents with worsening SOB, productive cough and congestion that started 3 days ago. She has been feeling extremely weak and mostly bed bound. She reports increased SOB and chest congestion. She reports pleuritic chest pain with deep breathing and cough. Denies sick contact. ED work-up - CXR: multifocal pneumonia - Trop 1.19, CKMB: 14 BNP: 2230 Elevated WBCs - Meds: received Rocephin, azithromycin, IV Lasix 40 mg and IV solumedrol Past Medical History Past Medical History: Arthritis, COPD, Coronary Artery Disease, Depression and Hypertension Past Surgical History Surgical History: Family History Family Medical History: Diabetes Mellitus, Cancer and Hypertension Social History Does patient currently use any type of tobacco product: No Have you used tobacco products in the last 12 months: Yes Type of Tobacco Use: Cigarettes How many years tobacco product used: 50 Does any household member use tobacco: No Alcohol Use: None Drug Use: None Prescription drug monitoring program results: PDMP reviewed and no concerns identified Medications Home Medications: amoxicillin Allergy (Verified 10/25/17 16:45) CONTINUE taking the following medications duloxetine 20 mg PO BID 04/06/19 [History] montelukast 10 mg PO DAILY 04/06/19 [History] oxycodone-acetaminophen 1 tab PO TID PRN 04/06/19 [History] ranitidine HCl 150 mg PO DAILY 04/06/19 [History] theophylline 300 mg PO DAILY 04/06/19 [History] Labs Result Diagrams: 04/07/19 03:50 04/07/19 03:50 Labs: 04/06/19 23:24 Sputum - Expectorated Sputum - Final Laboratory WBC 13.7 X10^3/uL (3.6-10.0) H 04/07/19 03:50 RBC 4.17 X10^6/uL (3.5-5.4) 04/07/19 03:50 Hgb 13.3 g/dL (12.0-16.0) 04/07/19 03:50 Hct 38.8 % (36.0-47.0) 04/07/19 03:50 MCV 93.1 fL (80.0-100.0) 04/07/19 03:50 MCH 32.0 pg (27.0-34.0) 04/07/19 03:50 MCHC 34.3 g/dL (33.0-35.0) 04/07/19 03:50 RDW 12.4 % (11.6-16.5) 04/07/19 03:50 Plt Count 479 X10^3/uL (150.0-450.0) H 04/07/19 03:50 Plt Count Comment Adequate (ADEQUATE) 04/07/19 03:50 MPV 8.3 fL (7.4-11.0) 04/07/19 03:50 Neut % (Auto) 95.0 % (42.0-75.0) H 04/07/19 03:50 Lymph % (Auto) 1.8 % (21.0-51.0) L 04/07/19 03:50 [place] % (Auto) 3.0 % (0.0-13.0) 04/07/19 03:50 Eos % (Auto) 0.0 % (0.9-2.9) L 04/07/19 03:50 Baso % (Auto) 0.2 % (0.2-1.0) 04/07/19 03:50 Neut # (Auto) 13.0 x10^3/uL (2.2-4.8) H 04/07/19 03:50 Lymph # (Auto) 0.2 X10^3/uL (1.3-2.9) L 04/07/19 03:50 [place] # (Auto) 0.4 x10^3/uL (0.3-0.8) 04/07/19 03:50 Eos # (Auto) 0.0 x10^3/uL (0.0-0.2) 04/07/19 03:50 Baso # (Auto) 0.0 X10^3/uL (0.0-0.1) 04/07/19 03:50 Absolute Nucleated RBC 0.0 /100WBC 04/07/19 03:50 Total Counted 100 04/07/19 03:50 Neutrophils % (Manual) 91 % (39-76) H 04/07/19 03:50 Band Neutrophils % 5 % (0-10) 04/07/19 03:50 Lymphocytes % (Manual) 2 % (13-43) L 04/07/19 03:50 Monocytes % (Manual) 2 % (4-9) L 04/07/19 03:50 Plt Morphology Comment Normal (NORMAL) 04/07/19 03:50 RBC Morphology Normal (NORMAL) 04/07/19 03:50 Sample Site Rb 04/07/19 09:20 ABG pH 7.470 (7.35-7.45) H 04/07/19 09:20 ABG pCO2 71.0 mmHg (35.0-45.0) H* 04/07/19 09:20 ABG pO2 72.0 mmHg (80.0-100.0) L 04/07/19 09:20 ABG HCO3 51.7 mmol/L (22-26) H* 04/07/19 09:20 ABG O2 Saturation 95.0 % (90-100) 04/07/19 09:20 ABG Base Excess 23.7 mmol/L (-2.0-2.0) H 04/07/19 09:20 Isaac Test Na 04/07/19 09:20 A-a Gradient 67.0 mmHg 04/07/19 09:20 FiO2 32.0 04/07/19 09:20 Blood Gas Comments Pt vance well. cdn 04/07/19 09:20 Sodium 134 mmol/L (136-145) L 04/07/19 03:50 Corrected Sodium 135 mmol/L (136-145) L 04/07/19 03:50 Potassium 3.4 mmol/L (3.5-5.1) L 04/07/19 03:50 Chloride 88 mmol/L (98-107) L 04/07/19 03:50 Carbon Dioxide 41.9 mmol/L (21-32) H* 04/07/19 03:50 BUN 15 mg/dL (7-18) 04/07/19 03:50 Creatinine 0.43 mg/dL (0.55-1.02) L 04/07/19 03:50 Est GFR (MDRD) Af Amer > 60 (>60) 04/07/19 03:50 Est GFR (MDRD) Non-Af > 60 (>60) 04/07/19 03:50 Glucose 129 mg/dL (65-99) H 04/07/19 03:50 Calcium 9.2 mg/dL (8.5-10.1) 04/07/19 03:50 Corrected Calcium 9.8 mg/dL (8.5-10.1) 04/07/19 03:50 Magnesium 1.9 mg/dL (1.7-2.9) 04/07/19 03:50 Total Bilirubin 0.30 mg/dL (0.2-1.0) 04/07/19 03:50 AST 20 Units/L (15-37) 04/07/19 03:50 ALT 11 Units/L (12-78) L 04/07/19 03:50 Alkaline Phosphatase 157 Units/L (46-116) H 04/07/19 03:50 Creatine Kinase 79 Units/L (26-192) 04/07/19 03:50 CK-MB (CK-2) 14.2 ng/mL (0-4.0) H* 04/07/19 03:50 CK/CKMB % Calc 18.0 % (<4) 04/07/19 03:50 Troponin I 1.25 ng/mL (0-1.5) 04/07/19 03:50 B-Natriuretic Peptide 2230 pg/mL (0-79) H* 04/06/19 22:36 Total Protein 7.7 g/dL (6.4-8.2) 04/07/19 03:50 Albumin 3.3 g/dL (3.4-5.0) L 04/07/19 03:50 Globulin 4.4 g/dL (2.5-4.5) 04/07/19 03:50 Albumin/Globulin Ratio 0.8 Ratio (1.1-2.1) L 04/07/19 03:50 Specimen Type Catherized urine 04/07/19 01:20 Urine Color Yellow (YELLOW) 04/07/19 01:20 Urine Appearance Cloudy (CLEAR) 04/07/19 01:20 Urine pH 8.0 (5.0 - 8.0) 04/07/19 01:20 Ur Specific Cost 1.015 (1.000-1.030) 04/07/19 01:20 Urine Protein 3+ (NEGATIVE) 04/07/19 01:20 Urine Glucose (UA) 2+ (NEGATIVE) 04/07/19 01:20 Urine Ketones 1+ (NEGATIVE) 04/07/19 01:20 Urine Occult Blood 3+ (NEGATIVE) 04/07/19 01:20 Urine Nitrite Negative (NEGATIVE) 04/07/19 01:20 Urine Bilirubin Negative (NEGATIVE) 04/07/19 01:20 Urine Urobilinogen Normal (NORMAL) 04/07/19 01:20 Ur Leukocyte Esterase 1+ (NEGATIVE) 04/07/19 01:20 Urine RBC 3-5 /HPF (0-3) A 04/07/19 01:20 Urine WBC 0-2 /HPF (0-5) 04/07/19 01:20 Ur Squamous Epith Cells Rare /HPF (NEGATIVE) 04/07/19 01:20 Urine Bacteria 4+ /HPF (NEGATIVE) 04/07/19 01:20 Ur Culture Indicated? Yes/culture set up 04/07/19 01:20 Mycoplasma pneumon IgG Negative (NEGATIVE) 04/07/19 03:50 Review of Systems Constitutional: Weakness and Malaise Eyes: No Symptoms Reported ENT: No Symptoms Reported Respiratory: Cough, Shortness of Breath, Hemoptysis, SOB with Excertion, Pleuritic Pain and Sputum Cardiovascular: Chest Pain Gastrointestinal: Nausea Genitourinary: No Symptoms Reported Musculoskeletal: Shoulder Pain, Back Pain and Neck Pain Skin: No Symptoms Reported Neurological: No Symptoms Reported Physical Exam Vital Signs: Temperature 97 F Pulse Rate [Apical] 106 Pulse Rate 91 Respiratory Rate 23 Blood Pressure [Right Arm] 157/72 Blood Pressure [Left Arm] 160/95 Blood Pressure 143/77 O2 Sat by Pulse Oximetry 99 Oriented: Normal and Other (veyr frail cachectic female ) Eyes: Normal Throat: Normal Respiratory: Diminished Throughout Cardiovascular: Tachycardia Auscultation: Bowel Sounds: Normal Palpation: Normal Skin: Normal Musculoskeletal: Back:Thoracic, Back:Lumbar and Deformity (severe kyphosis and scoliosis ) Psychiatric: Anxiety Mood Description: Anxious Affect: Anxious Speech Pattern: Clear (patient not able to speak in complete sentences due to feeling short of breath ) and Appropriate Assessment/Plan (1) NSTEMI (non-ST elevated myocardial infarction): Narrative Support Text: Denies active chest pain, has been having pleuritic chest pain with cough. Hx of CAD s/p PCI, 3 stents, last done 6 yrs ago in [place], prior to that in [place]. Status: Acute Plan: EKG: Sinus tach, possible MAT troponin elevation: 1.25 > 1.19 > 1.03 CKMB elevation Start heparin drip, asa, statin. Discussed with patient about cath, she is not sure if she can go through that because of her weakness. She will let me know l ater today so we can initiate the transfer to a cath facility. (2) COPD exacerbation: Narrative Support Text: Patient with severe COPD on continuous oxygen. Status: Acute Plan: ABG reviewed: chronic CO2 retainer, continue IV abx, duonebs, steroi ds and oxygen. Currently on 3 L which she uses at home (3) Multifocal pneumonia: Status: Acute Plan: CXR: consistent with patchy multifocal pneumonia CTPE: negative for PE, Advanced emphysematous changes with bronchiolar thickening in the right lower lobe Switch Rocephin to Cefepime, continue azithromycin. Mycoplasma and flu pending Follow sputum cultures (4) CHF exacerbation: Qualifiers: Heart failure type: unspecified Qualified Code(s): I50.9 - Heart failure, unspecified Status: Acute Plan: BNP elevated 2230 on admission, received one dose of IV Lasix Echo done today: EF 54%. diastolic dysfunction, normal wall motion. No signs of fluid overload on exam. Not on Lasix at home (5) Metabolic alkalosis with respiratory acidosis: Status: Acute (6) Scoliosis (and kyphoscoliosis), idiopathic: Status: Acute Plan: Severe thoracic kyphosis with chronic appearing T8 compression fracture. Continue pain control with home dose Percocet (7) Anxiety: Status: Acute (8) Hypertension: Qualifiers: Hypertension type: unspecified Qualified Code(s): I10 - Essential (primary) hypertension Status: Chronic Plan: resume home medications (9) DJD (degenerative joint disease): Qualifiers: Osteoarthritis location: multiple joints Osteoarthritis type: unspecified Qualified Code(s): M15.9 - Polyosteoarthritis, unspecified Status: Acute (10) Generalized weakness: Status: Acute Review Patient was examined?: Yes
[2019-04-07] MEDS: PERCOCET TAB 5/325 MG PO PRN ×2 (10:30→18:53)
[2019-04-07] MEDS: XANAX PO PRN ×2 (10:30→21:18)
[2019-04-07 10:34] LABS: CKMB % 10.3 % (<4); TROPONIN I 1.03 ng/mL (0-1.5)
[2019-04-07 10:37] LABS: CREATINE KINASE MB 10.3 ng/mL (0-4.0)
[2019-04-07] MEDS ORDERED: NS 100 ML IV + SPIKE MINIBAG* 0 ML IV ONE (10:57)
[2019-04-07] MEDS: MAXIPIME VIAL 1 GRAM 1 G in NS 50 ML IV + SPIKE MINIBAG* 50 ML IV SCH ×2 (11:00→21:20)
--- NOTE | 2019-04-07 11:12 | CT ---
HISTORY: Shortness of breath Study: CTA chest Comparison: None Technique: Multiple axial images of the chest were obtained after the administration of IV contrast. 3D reconstructions were performed utilizing radial maximum intensity projection imaging. Dose reduction techniques including Automated Exposure Control (AEC) and adjustment of mA and kV were utilized. Findings: Contrast opacification of the pulmonary arteries is adequate to the level of the segmental branches. No evidence of acute pulmonary emboli. Heart size is normal with calcified plaque throughout the coronary arteries. No pericardial effusion. The aorta appears normal in course and caliber. Lungs are hyperinflated centrilobular emphysematous changes noted. Mild infiltrate is seen in the lingula for which developing pneumonia is not excluded. Partially visualized infiltrates are seen in the upper lung zones. The lung apices were not excluded due to difficulty scanning the patient. Mild bronchiolar thickening is seen in the left lower lobe. There is severe kyphosis of the thoracic spine of almost 90. There is a compression fracture of T8 that appears chronic. The visualized portions of the upper abdomen are grossly unremarkable. IMPRESSION: 1. Partially visualized infiltrates in the upper lung zones and in the lingula for which pneumonia is not excluded. Please note the lung apices were not included in the field of view due to difficulty scanning the patient. 2. Advanced emphysematous changes with bronchiolar thickening in the right lower lobe. 3. Coronary atherosclerotic disease. 4. Severe thoracic kyphosis with chronic appearing T8 compression fracture. 5. No acute pulmonary embolism. Reported By:
[2019-04-07] MEDS: XOPENEX 1.25 MG/3 ML NEBULE NEB SCH ×2 (12:14→16:35)
[2019-04-07] MEDS ORDERED: HEPARIN SODIUM IN D5W 25,000 UNITS/500 ML BAG IV PRN (12:46)
[2019-04-07] MEDS ORDERED: ASPIRIN 81 MG CHEWTAB ONE (12:52)
[2019-04-07] MEDS ORDERED: ASPIRIN 81 MG CHEWTAB PO SCH ×3 (13:00→14:00)
[2019-04-07] MEDS ORDERED: ASPIRIN 81 MG CHEWTAB PO ONE (13:39)
[2019-04-07] MEDS: PREDNISONE TAB 20 MG PO SCH (14:03)
[2019-04-07] MEDS: LIPITOR TAB 40 MG PO SCH (14:03)
[2019-04-07] MEDS: NEURONTIN CAP 300 MG PO SCH ×2 (14:03→21:19)
[2019-04-07] MEDS ORDERED: HEPARIN SODIUM INJ 5000 UNITS IVP ONE ×2 (14:43→22:52)
[2019-04-07 15:19] LABS: CKMB % 17.3 % (<4); TROPONIN I 1.28 ng/mL (0-1.5)
[2019-04-07 15:20] LABS: CREATINE KINASE MB 11.9 ng/mL (0-4.0)
[2019-04-07] MEDS ORDERED: COLACE CAP 100 MG PO SCH (21:00)
[2019-04-07] MEDS: CYMBALTA PO SCH (21:19)
[2019-04-07] MEDS ORDERED: HEPARIN SODIUM INJ 5000 UNITS ONE (22:57)
[2019-04-08] MEDS: XOPENEX 1.25 MG/3 ML NEBULE NEB SCH ×3 (00:42→12:09)
[2019-04-08] MEDS ORDERED: ROCEPHIN VIAL 1 GRAM IV SCH (00:45)
[2019-04-08] MEDS: NEURONTIN CAP 300 MG PO SCH ×2 (05:28→14:59)
[2019-04-08] MEDS: NS 500 ML IV 500 ML IV SCH (05:28)
[2019-04-08] MEDS: XANAX PO PRN ×2 (05:29→14:59)
[2019-04-08 05:46] LABS: BASOPHILS % (AUTO) 0.3 % (0.2-1.0); HEMATOCRIT 39.3 % (36.0-47.0); HEMOGLOBIN 13.1 g/dL (12.0-16.0); LYMPHOCYTES # (AUTO) 0.6 X10^3/uL (1.3-2.9); LYMPHOCYTES % (AUTO) 5.4 % (21.0-51.0); MEAN CORPUSCULAR HEMOGLOBIN 30.7 pg (27.0-34.0); MEAN CORPUSCULAR HGB CONC 33.3 g/dL (33.0-35.0); MEAN CORPUSCULAR VOLUME 92.3 fL (80.0-100.0); MEAN PLATELET VOLUME 7.7 fL (7.4-11.0); MONOCYTES # (AUTO) 0.7 x10^3/uL (0.3-0.8); MONOCYTES % (AUTO) 6.7 % (0.0-13.0); NEUTROPHILS # (AUTO) 9.1 x10^3/uL (2.2-4.8); NEUTROPHILS % (AUTO) 87.6 % (42.0-75.0); PLATELET COUNT 510 X10^3/uL (150.0-450.0); RED BLOOD COUNT 4.26 X10^6/uL (3.5-5.4); RED CELL DISTRIBUTION WIDTH 12.9 % (11.6-16.5); WHITE BLOOD COUNT 10.4 X10^3/uL (3.6-10.0)
[2019-04-08] MEDS ORDERED: HEPARIN SODIUM INJ 5000 UNITS IVP ONE ×2 (06:36→13:51)
[2019-04-08] MEDS ORDERED: HEPARIN SODIUM INJ 5000 UNITS ONE ×2 (06:38→13:54)
[2019-04-08 07:29] LABS: ALBUMIN 2.9 g/dL (3.4-5.0); CALCIUM 8.7 mg/dL (8.5-10.1); CHOL/HDL RATIO 3.5 (0.0-5.0); CKMB % 13.4 % (<4); COR CA(FOR HYPOALB) 9.6 mg/dL (8.5-10.1); CREATININE 1.15 mg/dL (0.55-1.02); TOTAL PROTEIN 6.7 g/dL (6.4-8.2); TROPONIN I 0.43 ng/mL (0-1.5)
[2019-04-08 07:31] LABS: CARBON DIOXIDE 44.5 mmol/L (21-32); CREATINE KINASE MB 4.7 ng/mL (0-4.0)
[2019-04-08] MEDS ORDERED: LASIX IVP SCH (09:00)
[2019-04-08] MEDS ORDERED: ASPIRIN 81 MG CHEWTAB PO SCH (09:00)
--- NOTE | 2019-04-08 09:11 | PCM.PROG ---
Progress Note Progress Note for Day of Date of Exam: 04/08/19 Subjective Subjective: Patient seen this AM, family at bedside. Patient reports sleeping well, denies chest pain or pressure. She reports improvement in cough, not coughing as much as she was prior to admission. She was having chest tightness with cough which has improved. She reports improvement in her breathing. Patient's labs reviewed this AM, trop trending down to 0.43. EKG reviewed. Patient and family agreed to have the patient transferred to [facility] for further evaluation by cardiology due to patient's presentation and risk factors due to underling CAD. Past Medical Family Social History Past Med/Fam/Surg Hx: No changes since H&P Allergies: Allergies amoxicillin Allergy (Verified 10/25/17 16:45) Review of Systems ROS: No change since H&P Vital Signs and I&O's Vital Signs: Temperature 97.7 F Pulse Rate [Apical] 106 Pulse Rate 80 Respiratory Rate 43 Blood Pressure [Right Arm] 157/72 Blood Pressure [Left Arm] 160/95 Blood Pressure 95/52 O2 Sat by Pulse Oximetry 96 Intake and Output: Intake & Output 04/05/19 04/06/19 04/07/19 04/08/19 23:59 23:59 23:59 23:59 Intake Total 1168 / 1168 128 / 128 Output Total 1700 / 1700 Balance -532 / -532 128 / 128 Physical Exam Oriented: Normal and Other (veyr frail cachectic female ) Eyes: Normal Throat: Normal Respiratory: Diminished Cardiovascular: Tachycardia Auscultation: Bowel Sounds: Normal Tenderness: Normal Skin: Normal Musculoskeletal: Back:Thoracic, Back:Lumbar and Deformity (severe kyphosis and scoliosis ) Psychiatric: Anxiety Mood Description: Anxious Affect: Anxious Speech Pattern: Clear and Appropriate Laboratory and Diagnostics Result Diagrams: 04/08/19 05:20 04/08/19 06:41 Labs: 04/06/19 23:24 Sputum - Expectorated Sputum - Final Laboratory WBC 10.4 X10^3/uL (3.6-10.0) H 04/08/19 05:20 RBC 4.26 X10^6/uL (3.5-5.4) 04/08/19 05:20 Hgb 13.1 g/dL (12.0-16.0) 04/08/19 05:20 Hct 39.3 % (36.0-47.0) 04/08/19 05:20 MCV 92.3 fL (80.0-100.0) 04/08/19 05:20 MCH 30.7 pg (27.0-34.0) 04/08/19 05:20 MCHC 33.3 g/dL (33.0-35.0) 04/08/19 05:20 RDW 12.9 % (11.6-16.5) 04/08/19 05:20 Plt Count 510 X10^3/uL (150.0-450.0) H 04/08/19 05:20 Plt Count Comment Adequate (ADEQUATE) 04/07/19 03:50 MPV 7.7 fL (7.4-11.0) 04/08/19 05:20 Neut % (Auto) 87.6 % (42.0-75.0) H 04/08/19 05:20 Lymph % (Auto) 5.4 % (21.0-51.0) L 04/08/19 05:20 [place] % (Auto) 6.7 % (0.0-13.0) 04/08/19 05:20 Eos % (Auto) 0.0 % (0.9-2.9) L 04/08/19 05:20 Baso % (Auto) 0.3 % (0.2-1.0) 04/08/19 05:20 Neut # (Auto) 9.1 x10^3/uL (2.2-4.8) H 04/08/19 05:20 Lymph # (Auto) 0.6 X10^3/uL (1.3-2.9) L 04/08/19 05:20 [place] # (Auto) 0.7 x10^3/uL (0.3-0.8) 04/08/19 05:20 Eos # (Auto) 0.0 x10^3/uL (0.0-0.2) 04/08/19 05:20 Baso # (Auto) 0.0 X10^3/uL (0.0-0.1) 04/08/19 05:20 Absolute Nucleated RBC 0.0 /100WBC 04/08/19 05:20 Total Counted 100 04/07/19 03:50 Neutrophils % (Manual) 91 % (39-76) H 04/07/19 03:50 Band Neutrophils % 5 % (0-10) 04/07/19 03:50 Lymphocytes % (Manual) 2 % (13-43) L 04/07/19 03:50 Monocytes % (Manual) 2 % (4-9) L 04/07/19 03:50 Plt Morphology Comment Normal (NORMAL) 04/07/19 03:50 RBC Morphology Normal (NORMAL) 04/07/19 03:50 PT 12.7 SECONDS (11.8-14.3) 04/07/19 14:25 INR Target Range - 04/07/19 14:25 INR 0.99 (0.8-1.3) 04/07/19 14:25 APTT 34.0 SECONDS (22.9-36.5) 04/08/19 05:20 PTT Comment - 04/08/19 05:20 Sample Site Rb 04/07/19 09:20 ABG pH 7.470 (7.35-7.45) H 04/07/19 09:20 ABG pCO2 71.0 mmHg (35.0-45.0) H* 04/07/19 09:20 ABG pO2 72.0 mmHg (80.0-100.0) L 04/07/19 09:20 ABG HCO3 51.7 mmol/L (22-26) H* 04/07/19 09:20 ABG O2 Saturation 95.0 % (90-100) 04/07/19 09:20 ABG Base Excess 23.7 mmol/L (-2.0-2.0) H 04/07/19 09:20 Isaac Test Na 04/07/19 09:20 A-a Gradient 67.0 mmHg 04/07/19 09:20 FiO2 32.0 04/07/19 09:20 Blood Gas Comments Pt vance well. cdn 04/07/19 09:20 Sodium 135 mmol/L (136-145) L 04/08/19 06:41 Corrected Sodium 135 mmol/L (136-145) L 04/08/19 06:41 Potassium 4.4 mmol/L (3.5-5.1) 04/08/19 06:41 Chloride 90 mmol/L (98-107) L 04/08/19 06:41 Carbon Dioxide 44.5 mmol/L (21-32) H* 04/08/19 06:41 BUN 39 mg/dL (7-18) H 04/08/19 06:41 Creatinine 1.15 mg/dL (0.55-1.02) H 04/08/19 06:41 Est GFR (MDRD) Af Amer 60 (>60) 04/08/19 06:41 Est GFR (MDRD) Non-Af 50 (>60) L 04/08/19 06:41 Glucose 118 mg/dL (65-99) H 04/08/19 06:41 Calcium 8.7 mg/dL (8.5-10.1) 04/08/19 06:41 Corrected Calcium 9.6 mg/dL (8.5-10.1) 04/08/19 06:41 Magnesium 1.9 mg/dL (1.7-2.9) 04/07/19 03:50 Total Bilirubin 0.10 mg/dL (0.2-1.0) L 04/08/19 06:41 AST 14 Units/L (15-37) L 04/08/19 06:41 ALT 10 Units/L (12-78) L 04/08/19 06:41 Alkaline Phosphatase 120 Units/L (46-116) H 04/08/19 06:41 Creatine Kinase 35 Units/L (26-192) 04/08/19 06:41 CK-MB (CK-2) 4.7 ng/mL (0-4.0) H* 04/08/19 06:41 CK/CKMB % Calc 13.4 % (<4) 04/08/19 06:41 Troponin I 0.43 ng/mL (0-1.5) 04/08/19 06:41 B-Natriuretic Peptide 2230 pg/mL (0-79) H* 04/06/19 22:36 Total Protein 6.7 g/dL (6.4-8.2) 04/08/19 06:41 Albumin 2.9 g/dL (3.4-5.0) L 04/08/19 06:41 Globulin 3.8 g/dL (2.5-4.5) 04/08/19 06:41 Albumin/Globulin Ratio 0.8 Ratio (1.1-2.1) L 04/08/19 06:41 Triglycerides 159 mg/dL (0-150) H 04/08/19 06:41 Cholesterol 204 mg/dL (0-200) H 04/08/19 06:41 LDL Cholesterol, Calc 113 mg/dL (0-100) H 04/08/19 06:41 HDL Cholesterol 59 mg/dL (40-60) 04/08/19 06:41 Cholesterol/HDL Ratio 3.5 (0.0-5.0) 04/08/19 06:41 Specimen Type Catherized urine 04/07/19 01:20 Urine Color Yellow (YELLOW) 04/07/19 01:20 Urine Appearance Cloudy (CLEAR) 04/07/19 01:20 Urine pH 8.0 (5.0 - 8.0) 04/07/19 01:20 Ur Specific [place] 1.015 (1.000-1.030) 04/07/19 01:20 Urine Protein 3+ (NEGATIVE) 04/07/19 01:20 Urine Glucose (UA) 2+ (NEGATIVE) 04/07/19 01:20 Urine Ketones 1+ (NEGATIVE) 04/07/19 01:20 Urine Occult Blood 3+ (NEGATIVE) 04/07/19 01:20 Urine Nitrite Negative (NEGATIVE) 04/07/19 01:20 Urine Bilirubin Negative (NEGATIVE) 04/07/19 01:20 Urine Urobilinogen Normal (NORMAL) 04/07/19 01:20 Ur Leukocyte Esterase 1+ (NEGATIVE) 04/07/19 01:20 Urine RBC 3-5 /HPF (0-3) A 04/07/19 01:20 Urine WBC 0-2 /HPF (0-5) 04/07/19 01:20 Ur Squamous Epith Cells Rare /HPF (NEGATIVE) 04/07/19 01:20 Urine Bacteria 4+ /HPF (NEGATIVE) 04/07/19 01:20 Ur Culture Indicated? Yes/culture set up 04/07/19 01:20 Influenza Type A (PCR) Negative (NEGATIVE) 04/07/19 12:20 Influenza Type B (PCR) Negative (NEGATIVE) 04/07/19 12:20 Mycoplasma pneumon IgG Negative (NEGATIVE) 04/07/19 03:50 Plan (1) NSTEMI (non-ST elevated myocardial infarction): Status: Acute Plan: EKG: Sinus tach, possible MAT troponin trending down 0.43 CMKB: 4 Continue heparin drip, asa, statin. Discussed with patient and family about being transferred to a facility with cardiology and cath. Patient is high risk due to prev hx of CAD with PCI. Would benefit from further evaluation by cardiojames glass for a possible cath. Will initiate transfer to [facility]. (2) COPD exacerbation: Status: Acute Plan: continue IV abx, duonebs, steroids and oxygen. Currently on 3 L which she uses at home (3) Multifocal pneumonia: Status: Acute Plan: CXR: consistent with patchy multifocal pneumonia CTPE: negative for PE, Advanced emphysematous changes with bronchiolar thickening in the right lower lobe. WBC trending down. Continue Cefepime and azithromycin. Flu negative Follow sputum cultures (4) CHF exacerbation: Status: Acute Qualifiers: Heart failure type: unspecified Qualified Code(s): I50.9 - Heart failure, unspecified Plan: BNP elevated 2230 on admission, received one dose of IV Lasix Echo done today: EF 54%. diastolic dysfunction, normal wall motion. No signs of fluid overload on exam. Not on Lasix at home (5) Metabolic alkalosis with respiratory acidosis: Status: Acute Plan: gentle hydration (6) Scoliosis (and kyphoscoliosis), idiopathic: Status: Acute Plan: Severe thoracic kyphosis with chronic appearing T8 compression fracture. Continue pain control with home dose Percocet (7) Anxiety: Status: Acute (8) Hypertension: Status: Chronic Qualifiers: Hypertension type: unspecified Qualified Code(s): I10 - Essential (primary) hypertension Plan: Hypotension, will hold Norvasc and Lisinopril, last BP 111/52 (9) DJD (degenerative joint disease): Status: Acute Qualifiers: Osteoarthritis location: multiple joints Osteoarthritis type: unspecified Qualified Code(s): M15.9 - Polyosteoarthritis, unspecified (10) Generalized weakness: Status: Acute (11) KRISTINE (acute kidney injury): Status: Acute Plan: Cr: 1.15 likely due to dehydration and post contrast, will start gentle hydration
[2019-04-08] MEDS ORDERED: NS 1000 ML 1,000 ML IV SCH (10:00)
[2019-04-08] MEDS: MAXIPIME VIAL 1 GRAM 1 G in NS 50 ML IV + SPIKE MINIBAG* 50 ML IV SCH (10:13)
[2019-04-08] MEDS: ZANTAC PO SCH (10:13)
[2019-04-08] MEDS: PREDNISONE TAB 20 MG PO SCH (10:14)
[2019-04-08] MEDS: SINGULAIR TAB 10 MG PO SCH (10:14)
[2019-04-08] MEDS: CYMBALTA PO SCH (10:14)
[2019-04-08] MEDS: SOMA TAB 350 MG PO SCH (10:14)
[2019-04-08] MEDS: LIPITOR TAB 40 MG PO SCH (10:15)
--- NOTE | 2019-04-08 13:19 | W.DIS.FURT ---
Summary of Discharge Discharge Summary of Date Date of Exam: 04/08/19 Admission Date Date of Admission: 04/06/19 Admission Diagnosis Hospital Course: Ms. Moore is a 69y/o female with a PMH of Severe COPD on continuous home oxygen 3L, CAD s/p PCI, HTN, Anxiety, severe kyphosis and scoliosis presented with worsening SOB, productive cough and chest discomfort. She was found to have pneumonia on admission with COPD exacerbation. She was started on IV abx and solumderol. She had elevated BNP, recieved a dose of IV lasix. Labs showed elevated troponin at 1.25, 1.19, 1.28 , elevated CKMB and with EKG concerning for multifocal atrial tachycardia. CTPE was negative for PE. Due to elevated tropinins and with a hx of CAD, patient was started on heparin drip. Repeat troponin the following day was 0.43 with similar EKG findings. Due to patient being high risk for cardiac ischemia with a hx of PCI, not on asa or statin ,elevated troponin and abnormal EKG, it was decided to transfer patient to another facility for cardio evaluation for a possible cath. Patient was initially reluctant to transfer but after further discussion with her daughters and sister, patient agreed for transfer. She was trasferred to [facility] in [place]. Patient was hemodynamically stable on transfer. She will follow up with PCP post discharge. Vital Signs: Vital Signs (72 hours) 04/06/19 22:21 04/06/19 22:30 04/06/19 23:00 Temperature 98.5 F Pulse Rate 99 H Pulse Rate [Apical] 89 106 H Respiratory Rate 22 Blood Pressure 135/65 Blood Pressure [Left Arm] 136/78 160/95 O2 Sat by Pulse Oximetry 98 96 98 04/06/19 23:15 04/06/19 23:29 04/06/19 23:30 Temperature Pulse Rate 86 91 H 90 Pulse Rate [Apical] Respiratory Rate Blood Pressure 140/73 Blood Pressure [Left Arm] O2 Sat by Pulse Oximetry 96 98 97 04/07/19 00:00 04/07/19 00:05 04/07/19 00:43 Temperature Pulse Rate 97 H 95 H 91 H Pulse Rate [Apical] Respiratory Rate Blood Pressure 148/75 Blood Pressure [Left Arm] O2 Sat by Pulse Oximetry 98 04/07/19 02:59 04/07/19 03:00 04/07/19 04:00 Temperature 99.4 F Pulse Rate 100 H 97 H 91 H Pulse Rate [Apical] Respiratory Rate 17 20 25 H Blood Pressure 140/72 110/58 Blood Pressure [Left Arm] O2 Sat by Pulse Oximetry 98 98 99 04/07/19 05:00 04/07/19 05:11 04/07/19 06:00 Temperature 97 F L Pulse Rate 110 H 91 H Pulse Rate [Apical] Respiratory Rate 30 H 25 H 26 H Blood Pressure 127/73 143/77 Blood Pressure [Left Arm] O2 Sat by Pulse Oximetry 99 99 04/07/19 06:11 04/07/19 07:00 04/07/19 08:00 Temperature 98.7 F Pulse Rate 84 107 H Pulse Rate [Apical] Respiratory Rate 23 22 21 Blood Pressure 123/61 131/86 Blood Pressure [Left Arm] O2 Sat by Pulse Oximetry 100 96 04/07/19 09:00 04/07/19 10:03 04/07/19 10:30 Temperature Pulse Rate 93 H 107 H Pulse Rate [Apical] Respiratory Rate 19 29 H 25 H Blood Pressure 140/83 Blood Pressure [Left Arm] O2 Sat by Pulse Oximetry 100 92 L 04/07/19 11:00 04/07/19 11:30 04/07/19 11:45 Temperature Pulse Rate 109 H 85 Pulse Rate [Apical] Respiratory Rate 27 H 20 20 Blood Pressure 113/58 113/58 Blood Pressure [Left Arm] O2 Sat by Pulse Oximetry 94 L 99 04/07/19 12:00 04/07/19 13:00 04/07/19 14:00 Temperature 97.6 F Pulse Rate 96 H 104 H 91 H Pulse Rate [Apical] Respiratory Rate 22 31 H 21 Blood Pressure 127/64 123/74 113/59 Blood Pressure [Left Arm] O2 Sat by Pulse Oximetry 97 94 L 100 04/07/19 15:00 04/07/19 16:00 04/07/19 17:00 Temperature 97.0 F L Pulse Rate 87 83 74 Pulse Rate [Apical] Respiratory Rate 23 21 20 Blood Pressure 125/65 83/50 81/43 Blood Pressure [Left Arm] O2 Sat by Pulse Oximetry 99 100 100 04/07/19 18:00 04/07/19 18:53 04/07/19 19:00 Temperature 98.8 F Pulse Rate 75 88 Pulse Rate [Apical] Respiratory Rate 19 25 H 21 Blood Pressure 88/49 97/69 Blood Pressure [Left Arm] O2 Sat by Pulse Oximetry 100 96 04/07/19 19:37 04/07/19 19:53 04/07/19 20:00 Temperature Pulse Rate 97 H 75 Pulse Rate [Apical] Respiratory Rate 31 H 23 19 Blood Pressure 111/58 86/49 Blood Pressure [Left Arm] O2 Sat by Pulse Oximetry 100 100 04/07/19 21:00 04/07/19 22:00 04/07/19 23:00 Temperature Pulse Rate 74 86 73 Pulse Rate [Apical] Respiratory Rate 17 19 17 Blood Pressure 88/50 86/48 69/40 Blood Pressure [Left Arm] O2 Sat by Pulse Oximetry 99 98 100 04/07/19 23:01 04/07/19 23:03 04/07/19 23:04 Temperature 97.7 F Pulse Rate 72 72 73 Pulse Rate [Apical] Respiratory Rate 18 19 18 Blood Pressure 71/42 71/41 70/41 Blood Pressure [Left Arm] O2 Sat by Pulse Oximetry 100 100 100 04/07/19 23:05 04/07/19 23:10 04/07/19 23:20 Temperature Pulse Rate 73 72 74 Pulse Rate [Apical] Respiratory Rate 16 17 18 Blood Pressure 71/42 72/41 75/44 Blood Pressure [Left Arm] O2 Sat by Pulse Oximetry 100 100 100 04/07/19 23:30 04/07/19 23:40 04/07/19 23:48 Temperature Pulse Rate 74 75 79 Pulse Rate [Apical] Respiratory Rate 17 18 17 Blood Pressure 77/42 76/44 91/52 Blood Pressure [Left Arm] O2 Sat by Pulse Oximetry 99 94 L 94 L 04/07/19 23:50 04/07/19 23:57 04/08/19 00:00 Temperature Pulse Rate 78 81 79 Pulse Rate [Apical] Respiratory Rate 15 17 23 Blood Pressure 87/53 80/44 82/50 Blood Pressure [Left Arm] O2 Sat by Pulse Oximetry 89 L 88 L 92 L 04/08/19 00:10 04/08/19 00:20 04/08/19 00:30 Temperature Pulse Rate 75 73 74 Pulse Rate [Apical] Respiratory Rate 22 19 20 Blood Pressure 83/45 83/53 Blood Pressure [Left Arm] O2 Sat by Pulse Oximetry 92 L 96 96 04/08/19 01:00 04/08/19 01:30 04/08/19 02:00 Temperature Pulse Rate 75 78 75 Pulse Rate [Apical] Respiratory Rate 16 16 22 Blood Pressure 93/51 100/52 88/51 Blood Pressure [Left Arm] O2 Sat by Pulse Oximetry 88 L 96 95 04/08/19 02:30 04/08/19 03:00 04/08/19 03:30 Temperature Pulse Rate 76 74 75 Pulse Rate [Apical] Respiratory Rate 19 22 16 Blood Pressure 84/54 89/54 87/49 Blood Pressure [Left Arm] O2 Sat by Pulse Oximetry 99 98 98 04/08/19 04:00 04/08/19 04:30 04/08/19 05:00 Temperature Pulse Rate 72 71 74 Pulse Rate [Apical] Respiratory Rate 23 19 18 Blood Pressure 84/51 85/47 86/51 Blood Pressure [Left Arm] O2 Sat by Pulse Oximetry 97 97 99 04/08/19 05:30 04/08/19 06:00 04/08/19 06:30 Temperature Pulse Rate 88 92 H 80 Pulse Rate [Apical] Respiratory Rate 22 28 H 43 H Blood Pressure 82/62 101/59 95/52 Blood Pressure [Left Arm] O2 Sat by Pulse Oximetry 94 L 96 04/08/19 07:00 04/08/19 08:00 04/08/19 09:00 Temperature 98.1 F Pulse Rate 84 81 83 Pulse Rate [Apical] Respiratory Rate 20 29 H 22 Blood Pressure 110/56 104/78 92/53 Blood Pressure [Left Arm] O2 Sat by Pulse Oximetry 100 91 L 04/08/19 10:00 04/08/19 11:00 04/08/19 12:00 Temperature 100.4 F H Pulse Rate 92 H 80 96 H Pulse Rate [Apical] Respiratory Rate 19 20 23 Blood Pressure 126/64 87/51 106/55 Blood Pressure [Left Arm] O2 Sat by Pulse Oximetry 04/08/19 12:10 Temperature Pulse Rate 83 Pulse Rate [Apical] Respiratory Rate Blood Pressure Blood Pressure [Left Arm] O2 Sat by Pulse Oximetry Labs: Laboratory Last Values WBC 10.4 X10^3/uL (3.6-10.0) H 04/08/19 05:20 RBC 4.26 X10^6/uL (3.5-5.4) 04/08/19 05:20 Hgb 13.1 g/dL (12.0-16.0) 04/08/19 05:20 Hct 39.3 % (36.0-47.0) 04/08/19 05:20 MCV 92.3 fL (80.0-100.0) 04/08/19 05:20 MCH 30.7 pg (27.0-34.0) 04/08/19 05:20 MCHC 33.3 g/dL (33.0-35.0) 04/08/19 05:20 RDW 12.9 % (11.6-16.5) 04/08/19 05:20 Plt Count 510 X10^3/uL (150.0-450.0) H 04/08/19 05:20 Plt Count Comment Adequate (ADEQUATE) 04/07/19 03:50 MPV 7.7 fL (7.4-11.0) 04/08/19 05:20 Neut % (Auto) 87.6 % (42.0-75.0) H 04/08/19 05:20 Lymph % (Auto) 5.4 % (21.0-51.0) L 04/08/19 05:20 [place] % (Auto) 6.7 % (0.0-13.0) 04/08/19 05:20 Eos % (Auto) 0.0 % (0.9-2.9) L 04/08/19 05:20 Baso % (Auto) 0.3 % (0.2-1.0) 04/08/19 05:20 Neut # (Auto) 9.1 x10^3/uL (2.2-4.8) H 04/08/19 05:20 Lymph # (Auto) 0.6 X10^3/uL (1.3-2.9) L 04/08/19 05:20 [place] # (Auto) 0.7 x10^3/uL (0.3-0.8) 04/08/19 05:20 Eos # (Auto) 0.0 x10^3/uL (0.0-0.2) 04/08/19 05:20 Baso # (Auto) 0.0 X10^3/uL (0.0-0.1) 04/08/19 05:20 Absolute Nucleated RBC 0.0 /100WBC 04/08/19 05:20 Total Counted 100 04/07/19 03:50 Neutrophils % (Manual) 91 % (39-76) H 04/07/19 03:50 Band Neutrophils % 5 % (0-10) 04/07/19 03:50 Lymphocytes % (Manual) 2 % (13-43) L 04/07/19 03:50 Monocytes % (Manual) 2 % (4-9) L 04/07/19 03:50 Plt Morphology Comment Normal (NORMAL) 04/07/19 03:50 RBC Morphology Normal (NORMAL) 04/07/19 03:50 PT 12.7 SECONDS (11.8-14.3) 04/07/19 14:25 INR Target Range - 04/07/19 14:25 INR 0.99 (0.8-1.3) 04/07/19 14:25 APTT 35.7 SECONDS (22.9-36.5) 04/08/19 12:45 PTT Comment - 04/08/19 12:45 Sample Site Rb 04/07/19 09:20 ABG pH 7.470 (7.35-7.45) H 04/07/19 09:20 ABG pCO2 71.0 mmHg (35.0-45.0) H* 04/07/19 09:20 ABG pO2 72.0 mmHg (80.0-100.0) L 04/07/19 09:20 ABG HCO3 51.7 mmol/L (22-26) H* 04/07/19 09:20 ABG O2 Saturation 95.0 % (90-100) 04/07/19 09:20 ABG Base Excess 23.7 mmol/L (-2.0-2.0) H 04/07/19 09:20 Isaac Test Na 04/07/19 09:20 A-a Gradient 67.0 mmHg 04/07/19 09:20 FiO2 32.0 04/07/19 09:20 Blood Gas Comments Pt vance well. cdn 04/07/19 09:20 Sodium 135 mmol/L (136-145) L 04/08/19 06:41 Corrected Sodium 135 mmol/L (136-145) L 04/08/19 06:41 Potassium 4.4 mmol/L (3.5-5.1) 04/08/19 06:41 Chloride 90 mmol/L (98-107) L 04/08/19 06:41 Carbon Dioxide 44.5 mmol/L (21-32) H* 04/08/19 06:41 BUN 39 mg/dL (7-18) H 04/08/19 06:41 Creatinine 1.15 mg/dL (0.55-1.02) H 04/08/19 06:41 Est GFR (MDRD) Af Amer 60 (>60) 04/08/19 06:41 Est GFR (MDRD) Non-Af 50 (>60) L 04/08/19 06:41 Glucose 118 mg/dL (65-99) H 04/08/19 06:41 Calcium 8.7 mg/dL (8.5-10.1) 04/08/19 06:41 Corrected Calcium 9.6 mg/dL (8.5-10.1) 04/08/19 06:41 Magnesium 1.9 mg/dL (1.7-2.9) 04/07/19 03:50 Total Bilirubin 0.10 mg/dL (0.2-1.0) L 04/08/19 06:41 AST 14 Units/L (15-37) L 04/08/19 06:41 ALT 10 Units/L (12-78) L 04/08/19 06:41 Alkaline Phosphatase 120 Units/L (46-116) H 04/08/19 06:41 Creatine Kinase 35 Units/L (26-192) 04/08/19 06:41 CK-MB (CK-2) 4.7 ng/mL (0-4.0) H* 04/08/19 06:41 CK/CKMB % Calc 13.4 % (<4) 04/08/19 06:41 Troponin I 0.43 ng/mL (0-1.5) 04/08/19 06:41 B-Natriuretic Peptide 2230 pg/mL (0-79) H* 04/06/19 22:36 Total Protein 6.7 g/dL (6.4-8.2) 04/08/19 06:41 Albumin 2.9 g/dL (3.4-5.0) L 04/08/19 06:41 Globulin 3.8 g/dL (2.5-4.5) 04/08/19 06:41 Albumin/Globulin Ratio 0.8 Ratio (1.1-2.1) L 04/08/19 06:41 Triglycerides 159 mg/dL (0-150) H 04/08/19 06:41 Cholesterol 204 mg/dL (0-200) H 04/08/19 06:41 LDL Cholesterol, Calc 113 mg/dL (0-100) H 04/08/19 06:41 HDL Cholesterol 59 mg/dL (40-60) 04/08/19 06:41 Cholesterol/HDL Ratio 3.5 (0.0-5.0) 04/08/19 06:41 Specimen Type Catherized urine 04/07/19 01:20 Urine Color Yellow (YELLOW) 04/07/19 01:20 Urine Appearance Cloudy (CLEAR) 04/07/19 01:20 Urine pH 8.0 (5.0 - 8.0) 04/07/19 01:20 Ur Specific [place] 1.015 (1.000-1.030) 04/07/19 01:20 Urine Protein 3+ (NEGATIVE) 04/07/19 01:20 Urine Glucose (UA) 2+ (NEGATIVE) 04/07/19 01:20 Urine Ketones 1+ (NEGATIVE) 04/07/19 01:20 Urine Occult Blood 3+ (NEGATIVE) 04/07/19 01:20 Urine Nitrite Negative (NEGATIVE) 04/07/19 01:20 Urine Bilirubin Negative (NEGATIVE) 04/07/19 01:20 Urine Urobilinogen Normal (NORMAL) 04/07/19 01:20 Ur Leukocyte Esterase 1+ (NEGATIVE) 04/07/19 01:20 Urine RBC 3-5 /HPF (0-3) A 04/07/19 01:20 Urine WBC 0-2 /HPF (0-5) 04/07/19 01:20 Ur Squamous Epith Cells Rare /HPF (NEGATIVE) 04/07/19 01:20 Urine Bacteria 4+ /HPF (NEGATIVE) 04/07/19 01:20 Ur Culture Indicated? Yes/culture set up 04/07/19 01:20 Influenza Type A (PCR) Negative (NEGATIVE) 04/07/19 12:20 Influenza Type B (PCR) Negative (NEGATIVE) 04/07/19 12:20 Mycoplasma pneumon IgG Negative (NEGATIVE) 04/07/19 03:50 Reason For Visit: MULTIFOCAL PNEUMONIA, COPD, CHF Discharge Date Discharge Date: 04/08/19 Discharge Diagnosis All Active Problems (Updated 04/11/19 @ 12:11 by Erika Weinberg) KRISTINE (acute kidney injury) (Acute) Generalized weakness (Acute) NSTEMI (non-ST elevated myocardial infarction) (Acute) Anxiety (Chronic) Scoliosis (and kyphoscoliosis), idiopathic (Chronic) Metabolic alkalosis with respiratory acidosis (Acute) Bronchitis (Acute) Chest pain (Acute) COPD exacerbation (Acute) COPD (chronic obstructive pulmonary disease) (Chronic) CAD (coronary artery disease) (Chronic) Hypertension (Chronic) Dehydration (Acute) Osteopenia determined by x-ray (Acute) Costochondritis (Acute) Back pain (Chronic) DJD (degenerative joint disease) (Chronic) Rib pain (Acute) COPD exacerbation (Acute) COPD exacerbation (Acute) Multifocal pneumonia (Acute) CHF exacerbation (Acute) Plan of Treatment: Continue with present treatment and follow up plan. Pt is to keep follow up appointment as instructed and take medications as ordered. Discharge Medications Discharge Medications: amoxicillin Allergy (Verified 10/25/17 16:45) CONTINUE taking the following medications duloxetine 20 mg PO BID 04/06/19 [History] montelukast 10 mg PO DAILY 04/06/19 [History] oxycodone-acetaminophen 1 tab PO TID PRN 04/06/19 [History] ranitidine HCl 150 mg PO DAILY 04/06/19 [History] theophylline 300 mg PO DAILY 04/06/19 [History] New Prescriptions alprazolam 0.75 mg PO TID PRN #0 tab 04/08/19 [Rx] aspirin 81 mg PO DAILY 30 Days #30 tab 04/08/19 [Rx] atorvastatin 40 mg PO DAILY 30 Days #30 tab 04/08/19 [Rx] Follow up and Referral Follow Up: 1 Week (PCP) Discharge Disposition Discharge Disposition: Stable
[2019-04-08] MEDS: PERCOCET TAB 5/325 MG PO PRN (17:29)
[2019-04-08 17:50] VITALS: BP 109/58
== END 2019-04-08 17:30 | disposition short-term general hospital (02) | DRG 193 ==
LOC: ER 22:09 → ICU 04-07 00:42
PROVIDERS: ADMIT Obstetrics & Gynecology Obstetrics; ATTEND Internal Medicine
CPT/HCPCS: 36415; 36600; 71010; 71045; 71275; 80053; 80061; 81001; 82550; 82553; 82803; 83735; 83880; 84484; 85025; 85610; 85730; 86738; 87040; 87070; 87077; 87086; 87088; 87186; 87205; 87502; 93005; 93306; 94640; 94669; 96365; 96374; 96375; 99285; A4216; A4222; J0456; J0692; J0696; J1644; J1940; J2405; J2930; J7040; J7050; J7512; J7620

== ENCOUNTER 2019-11-14 15:03 | Inpatient (IN) ==
[2019-11-14] MEDS ORDERED: ASPIRIN PO ONE (15:14)
[2019-11-14 15:32] LABS: ABG PCO2 > 115.0 mmHg (35.0-45.0)
[2019-11-14 15:37] LABS: BASOPHILS % (AUTO) 0.1 % (0.2-1.0); HEMATOCRIT 36.7 % (36.0-47.0); HEMOGLOBIN 11.6 g/dL (12.0-16.0); LYMPHOCYTES # (AUTO) 0.4 X10^3/uL (1.3-2.9); LYMPHOCYTES % (AUTO) 3.1 % (21.0-51.0); MEAN CORPUSCULAR HEMOGLOBIN 28.3 pg (27.0-34.0); MEAN CORPUSCULAR HGB CONC 31.5 g/dL (33.0-35.0); MEAN CORPUSCULAR VOLUME 89.6 fL (80.0-100.0); MEAN PLATELET VOLUME 7.1 fL (7.4-11.0); MONOCYTES # (AUTO) 0.8 x10^3/uL (0.3-0.8); MONOCYTES % (AUTO) 6.1 % (0.0-13.0); NEUTROPHILS # (AUTO) 11.3 x10^3/uL (2.2-4.8); NEUTROPHILS % (AUTO) 90.7 % (42.0-75.0); PLATELET COUNT 413 X10^3/uL (150.0-450.0); RED CELL DISTRIBUTION WIDTH 13.9 % (11.6-16.5); WHITE BLOOD COUNT 12.4 X10^3/uL (3.6-10.0)
--- NOTE | 2019-11-14 15:46 | RAD ---
HISTORYSOB, CHEST PAINSTUDYCHEST, 1 VIEWCOMPARISONNoneFINDINGSThe patient is rotated. The cardiac silhouette is unremarkable. The upper lobes are partially obscured right greater than left by overlying soft tissues due to patient positioning. Biapical pleural thickening is suspected. Interstitial changes are seen throughout both lungs. Bilateral pleural effusions are noted. Bibasilar atelectasis and/or infiltrate cannot be excluded.IMPRESSIONSmall bilateral pleural effusions. Bibasilar atelectasis and/or infiltrate cannot be excluded.Electronically signed by: CARLOS GASTON (Nov 14, 2019 15:44:38)
[2019-11-14 15:54] LABS: BLOOD UREA NITROGEN 14 mg/dL (7-18); CALCIUM 9.3 mg/dL (8.5-10.1); CHLORIDE 87 mmol/L (98-107); COR NA(FOR HYPERGLY) 132 mmol/L (136-145); CREATININE 0.43 mg/dL (0.55-1.02); SODIUM 131 mmol/L (136-145); TROPONIN I 0.03 ng/mL (0-1.5); eGFR NON BLACK RACES > 60 (>60)
[2019-11-14] MEDS ORDERED: SOLU-Medrol 40 MG VIAL IVP ONE (15:55)
[2019-11-14 16:17] LABS: ALANINE AMINOTRANSFERASE 21 Units/L (12-78); ALBUMIN 3.4 g/dL (3.4-5.0); ALKALINE PHOSPHATASE 122 Units/L (46-116); ASPARTATE AMINO TRANSFERASE 25 Units/L (15-37); CKMB % 11.4 % (<4); CREATINE KINASE 44 Units/L (26-192); MAGNESIUM 1.8 mg/dL (1.7-2.9); TOTAL PROTEIN 7.4 g/dL (6.4-8.2)
[2019-11-14 16:24] LABS: CARBON DIOXIDE > 45.0 mmol/L (21-32)
[2019-11-14 16:27] LABS: BAND NEUTROPHILS % 3 % (0-10); HYPOCHROMASIA SLIGHT; METAMYELOCYTES % 1; PLATELET MORPHOLOGY COMMENT NORMAL (NORMAL)
[2019-11-14] MEDS ORDERED: MORPHINE SULFATE INJ 2 MG INJ IVP ONE (16:33)
[2019-11-14] MEDS ORDERED: LEVAQUIN PREMIX IV 750 MG 750 MG/150 ML BAG IV SCH (17:00)
--- NOTE | 2019-11-14 17:45 | DR.SOBA ---
HPI Time Seen Time Seen by Provider: 11/14/19 15:15 HPI Comment HPI Comment: SHOB worse since yesterday (chronic SHOB secondary to COPD O2 dep), chronic chest pain with PMH of CAD requiring CABG not a surgical candidate on medical management only. Complaints Chief Complaint:: PT C/O SOB, CHEST PAIN THAT RADIATES THROUGH TO HER BACK. PT STATES IT ALL STARTED LAST NIGHT. EMS STATES UPON ARRIVAL TO PT'S RESIDENCE PT NOTED TO HAVE SPO2 OF 30% WITH NC 2 LPM. EMS INCREASED TO 5 LPM AND SPO2 ONLY INCREASED TO 74%, PLACED NRB ITH 6LPM AND INCREASED SPO2 TO LOW 90'S COVID-19 Coronavirus risk:travel/contact w/high risk person: No Has patient experienced Coronavirus symptoms: Yes Coronavirus symptoms experienced: Coughing and Shortness of Breath Source History Provided: Patient Mode of Arrival Mode of Arrival: EMS Timing Onset of Chief Complaint: 11/13/19 PMH PMH Past Medical History: Yes Past Medical History: Arthritis, COPD, Coronary Artery Disease, Depression and Hypertension Past Surgical History: Yes Surgical History: Family History History of Family Medical Conditions: Yes Family Medical History: Diabetes Mellitus, Cancer and Hypertension Social History Alcohol Use: None Do you use any recreational Drugs:: No Lives With: Family Lives Where: Home Travel Risk Coronavirus risk:travel/contact w/high risk person: No Has patient experienced Coronavirus symptoms: Yes Coronavirus symptoms experienced: Coughing and Shortness of Breath Infectious screening In the last 2 months have you had wt loss of >10#?: NO Have you had fever, night sweats or hemotysis?: No Have you traveled outside the country in the last 6 months?: No Isolation: Droplet ROS Review of Systems Constitutional: Weakness Eyes: No Symptoms Reported ENTM: No Symptoms Reported Respiratoy: See HPI Cardiovascular: See HPI Gastrointestinal/Abdominal: No Symptoms Reported Genitourinary: No Symptoms Reported Neurological: No Symptoms Reported Musculoskeletal: No Symptoms Reported Integumentary: No Symptoms Reported Hematologic/Lymphatic: No Symptoms Reported Endocrine: No Symptoms Reported Psychiatric: No Symptoms Reported All Other Systems: Reviewed and Negative PE Vital Signs Vitals: Temperature 97.7 F Pulse Rate 70 Respiratory Rate 24 Blood Pressure [Right Arm] 157/72 Blood Pressure [Left Arm] 160/95 Blood Pressure 172/73 O2 Sat by Pulse Oximetry 96 General Limitations: No Limitations General Appearance: Alert and In Distress (respiratory) Head Head Exam: Normal Inspection Eyes Eye exam: Normal Appearance ENT ENT Exam: Normal Exam Neck Neck Exam: Normal Inspection Chest Chest Inspection: Normal Inspection and Symmetric Chest Wall Rise Respiratory Respiratory Exam: Normal Lung Sounds Bilat, Accessory Muscle Use and Respiratory Distress Respiratory Exam: Bilateral: Clear to Auscultation Cardiovascular Cardiovascular Exam: Regular Rate and Normal Rhythm Abdominal Exam Abdominal Exam: Normal Inspection, Normal Bowel Sounds and Soft Extremities Extremities Exam: Normal Inspection Back Back Exam: Normal Inspection Neurologic Neurological Exam: Alert and Oriented X3 Psychiatric Psychiatric Exam: Normal Affect and Normal Mood Skin Skin Exam: Warm, Dry, Intact and Normal Color COURSE Treatment Treatment: BiPAP placed, clinical improvement noted. Repeat ABG in 2 hrs. Trops not elevated, EKG nonspecific. Will Admit for COPD exacerbation management and serial trops. Spoke with Dr. Chandler (clinical program consultant) and he agrees. Called Dr. Weinberg, she is aware. Reevaluation 1st: Improved ROR Labs Reviewed Laboratory Results Reviewed?: Yes Result Diagrams: 11/14/19 15:28 11/14/19 15:28 Laboratory: WBC 12.4 X10^3/uL (3.6-10.0) H 11/14/19 15:28 RBC 4.10 X10^6/uL (3.5-5.4) 11/14/19 15:28 Hgb 11.6 g/dL (12.0-16.0) L 11/14/19 15:28 Hct 36.7 % (36.0-47.0) 11/14/19 15: MCV 89.6 fL (80.0-100.0) 11/14/19 15:28 MCH 28.3 pg (27.0-34.0) 11/14/19 15:28 MCHC 31.5 g/dL (33.0-35.0) L 11/14/19 15:28 RDW 13.9 % (11.6-16.5) 11/14/19 15:28 Plt Count 413 X10^3/uL (150.0-450.0) 11/14/19 15:28 Plt Count Comment Adequate (ADEQUATE) 11/14/19 15:28 MPV 7.1 fL (7.4-11.0) L 11/14/19 15:28 Neut % (Auto) 90.7 % (42.0-75.0) H 11/14/19 15:28 Lymph % (Auto) 3.1 % (21.0-51.0) L 11/14/19 15: Lucas % (Auto) 6.1 % (0.0-13.0) 11/14/19 15: Eos % (Auto) 0.0 % (0.9-2.9) L 11/14/19 15: Baso % (Auto) 0.1 % (0.2-1.0) L 11/14/19 15: Neut # (Auto) 11.3 x10^3/uL (2.2-4.8) H 11/14/19 15: Lymph # (Auto) 0.4 X10^3/uL (1.3-2.9) L 11/14/19 15: Lucas # (Auto) 0.8 x10^3/uL (0.3-0.8) 11/14/19 15: Eos # (Auto) 0.0 x10^3/uL (0.0-0.2) 11/14/19 15: Baso # (Auto) 0.0 X10^3/uL (0.0-0.1) 11/14/19 15: Absolute Nucleated RBC 0.0 /100WBC 11/14/19 15: Total Counted 100 11/14/19: Neutrophils % (Manual) 85 % (39-76) H 11/14/19 15: Band Neutrophils % 3 % (0-10) 11/14/19 15: Lymphocytes % (Manual) 8 % (13-43) L 11/14/19 15: Monocytes % (Manual) 3 % (4-9) L 11/14/19 15: Metamyelocytes % 1 11/14/19 15: Plt Morphology Comment Normal (NORMAL) 11/14/19: RBC Morphology Abnormal (NORMAL) A 11/14/19 15: Hypochromasia Slight A 11/14/19: PT 11.8 SECONDS (11.8-14.3) 11/14/19 15: INR Target Range - 11/14/19: INR 0.89 (0.8-1.3) 11/14/19 15:28 APTT 26.6 SECONDS (22.9-36.5) 11/14/19 15:28 PTT Comment - 11/14/19 15:28 Sample Site Rbra 11/14/19 17:42 ABG pH 7.350 (7.35-7.45) 11/14/19 17:42 ABG pCO2 106.0 mmHg (35.0-45.0) H* 11/14/19 17:42 ABG pO2 57.0 mmHg (80.0-100.0) L 11/14/19 17:42 ABG HCO3 58.5 mmol/L (22-26) H* 11/14/19 17:42 ABG O2 Saturation 88.0 % (90-100) L 11/14/19 17:42 ABG Base Excess 26.8 mmol/L (-2.0-2.0) H 11/14/19 17:42 Isaac Test N/a 11/14/19 17:42 A-a Gradient 60.0 mmHg 11/14/19 17:42 FiO2 35.0 11/14/19 17:42 Blood Gas Comments Pt vance well elj 11/14/19 17:42 Sodium 131 mmol/L (136-145) L 11/14/19 15:28 Corrected Sodium 132 mmol/L (136-145) L 11/14/19 15:28 Potassium 4.6 mmol/L (3.5-5.1) 11/14/19 15:28 Chloride 87 mmol/L (98-107) L 11/14/19 15:28 Carbon Dioxide > 45.0 mmol/L (21-32) H* 11/14/19 15:28 BUN 14 mg/dL (7-18) 11/14/19 15:28 Creatinine 0.43 mg/dL (0.55-1.02) L 11/14/19 15:28 Est GFR (MDRD) Af Amer > 60 (>60) 11/14/19 15:28 Est GFR (MDRD) Non-Af > 60 (>60) 11/14/19 15:28 Glucose 150 mg/dL (65-99) H 11/14/19 15:28 Calcium 9.3 mg/dL (8.5-10.1) 11/14/19 15:28 Corrected Calcium TNP 11/14/19 15:28 Magnesium 1.8 mg/dL (1.7-2.9) 11/14/19 15:28 Total Bilirubin 0.30 mg/dL (0.2-1.0) 11/14/19 15:28 AST 25 Units/L (15-37) 11/14/19 15:28 ALT 21 Units/L (12-78) 11/14/19 15:28 Alkaline Phosphatase 122 Units/L (46-116) H 11/14/19 15:28 Creatine Kinase 44 Units/L (26-192) 11/14/19 15:28 CK-MB (CK-2) 5.0 ng/mL (0-4.0) H* 11/14/19 15:28 CK/CKMB % Calc 11.4 % (<4) 11/14/19 15:28 Troponin I 0.03 ng/mL (0-1.5) 11/14/19 15:28 Total Protein 7.4 g/dL (6.4-8.2) 11/14/19 15:28 Albumin 3.4 g/dL (3.4-5.0) 11/14/19 15:28 Globulin 4.0 g/dL (2.5-4.5) 11/14/19 15:28 Albumin/Globulin Ratio 0.9 Ratio (1.1-2.1) L 11/14/19 15:28 XRAY XRAY Interpreted by: Self X-ray Results: Reviewed CXR from Mar 2019, no significant changes noted. EKG Rate: 88 [place]: RAD Rhythm: NSR Block: None Hypertrophy: None ST: Normal Opioid Opioid Risk Tool Age ([place] if 16-45): No History of Preadolescent Sexual Abuse: No Total: 0 Total Score Risk Category: Low Risk Copyright: Sanjeev SINGLETON predicting aberrant behaviors Diagnosis Discharge Problem: COPD exacerbation, Acute type 2 respiratory failure, Chest pain, rule out acute myocardial infarction
[2019-11-14] MEDS ORDERED: NS 250 ML IV 250 ML IV ONE (17:49)
[2019-11-14] MEDS ORDERED: MORPHINE SULFATE INJ 2 MG INJ ONE (17:49)
[2019-11-14] MEDS ORDERED: SOLU-Medrol 40 MG VIAL ONE (17:49)
[2019-11-14] MEDS ORDERED: LEVAQUIN PREMIX IV 750 MG 750 MG/150 ML BAG IV ONE (17:50)
[2019-11-14 17:53] LABS: ABG BASE EXCESS 26.8 mmol/L (-2.0-2.0)
[2019-11-14 17:54] LABS: ABG HCO3 58.5 mmol/L (22-26)
[2019-11-14] MEDS ORDERED: ULTRAM PO PRN (20:47)
[2019-11-14] MEDS ORDERED: DUONEB 0.5 MG/3 MG (3 mL) NEB ONE (21:27)
[2019-11-14] MEDS: DUONEB 0.5 MG/3 MG (3 mL) NEB SCH (21:30)
[2019-11-14 22:37] LABS: CKMB % 9.4 % (<4); TROPONIN I 0.1 ng/mL (0-1.5)
[2019-11-14] MEDS: NEURONTIN CAP 300 MG PO SCH (22:44)
[2019-11-14 22:54] LABS: BILIRUBIN,URINE NEGATIVE (NEGATIVE); BLOOD/HEMOGLOBIN,URINE 1+ (NEGATIVE); GLUCOSE, URINE NEGATIVE (NEGATIVE); KETONES,URINE 1+ (NEGATIVE); LEUKOCYTE ESTERASE ,URINE NEGATIVE (NEGATIVE); NITRITES,URINE POSITIVE (NEGATIVE); PROTEIN,URINE 3+ (NEGATIVE); UROBILINOGEN,URINE NORMAL (NORMAL)
[2019-11-14 22:59] LABS: AMORPHOUS SEDIMENT,UR 1+ /HPF (NEGATIVE); APPEARANCE,URINE HAZY (CLEAR); BACTERIA,URINE 3+ /HPF (NEGATIVE); COLOR,URINE YELLOW (YELLOW); SQUAMOUS EPITHELIAL CELL,UR RARE /HPF (NEGATIVE)
[2019-11-15] MEDS: DUONEB 0.5 MG/3 MG (3 mL) NEB SCH ×4 (00:30→18:04)
[2019-11-15 05:25] LABS: ABG BASE EXCESS 24.8 mmol/L (-2.0-2.0)
[2019-11-15 05:26] LABS: ABG HCO3 53.5 mmol/L (22-26)
[2019-11-15] MEDS: HumuLIN R SC SCH ×4 (05:35→20:52)
[2019-11-15 06:05] LABS: BASOPHILS % (AUTO) 0.1 % (0.2-1.0); HEMOGLOBIN 11.4 g/dL (12.0-16.0); LYMPHOCYTES # (AUTO) 0.3 X10^3/uL (1.3-2.9); LYMPHOCYTES % (AUTO) 1.9 % (21.0-51.0); MEAN CORPUSCULAR HEMOGLOBIN 28.6 pg (27.0-34.0); MEAN CORPUSCULAR HGB CONC 32.5 g/dL (33.0-35.0); MEAN CORPUSCULAR VOLUME 87.9 fL (80.0-100.0); MEAN PLATELET VOLUME 7.9 fL (7.4-11.0); MONOCYTES # (AUTO) 1.1 x10^3/uL (0.3-0.8); MONOCYTES % (AUTO) 6.2 % (0.0-13.0); NEUTROPHILS % (AUTO) 91.8 % (42.0-75.0); PLATELET COUNT 386 X10^3/uL (150.0-450.0); RED BLOOD COUNT 3.98 X10^6/uL (3.5-5.4); RED CELL DISTRIBUTION WIDTH 14.2 % (11.6-16.5); WHITE BLOOD COUNT 17.5 X10^3/uL (3.6-10.0)
[2019-11-15] MEDS: NEURONTIN CAP 300 MG PO SCH ×3 (06:08→21:03)
[2019-11-15 06:45] LABS: ALANINE AMINOTRANSFERASE 18 Units/L (12-78); ALBUMIN 3.3 g/dL (3.4-5.0); ALKALINE PHOSPHATASE 117 Units/L (46-116); ASPARTATE AMINO TRANSFERASE 25 Units/L (15-37); BLOOD UREA NITROGEN 14 mg/dL (7-18); CALCIUM 9.7 mg/dL (8.5-10.1); CHLORIDE 83 mmol/L (98-107); CHOL/HDL RATIO 1.8 (0.0-5.0); CHOLESTEROL 200 mg/dL (0-200); CKMB % 7.6 % (<4); COR CA(FOR HYPOALB) 10.3 mg/dL (8.5-10.1); CREATINE KINASE 83 Units/L (26-192); CREATININE 0.53 mg/dL (0.55-1.02); HDL CHOLESTEROL 110 mg/dL (40-60); MAGNESIUM 1.8 mg/dL (1.7-2.9); SODIUM 129 mmol/L (136-145); TOTAL PROTEIN 7.2 g/dL (6.4-8.2); TRIGLYCERIDES 72 mg/dL (0-150); TROPONIN I 0.44 ng/mL (0-1.5); eGFR NON BLACK RACES > 60 (>60)
[2019-11-15 06:47] LABS: CREATINE KINASE MB 6.3 ng/mL (0-4.0)
[2019-11-15 06:48] LABS: BAND NEUTROPHILS % 3 % (0-10); PLATELET MORPHOLOGY COMMENT NORMAL (NORMAL)
[2019-11-15] MEDS ORDERED: XANAX PO PRN (07:56)
[2019-11-15] MEDS ORDERED: PERCOCET TAB 5/325 MG PO PRN (07:56)
[2019-11-15] MEDS ORDERED: NS 1000 ML 1,000 ML IV SCH (08:00)
[2019-11-15] MEDS ORDERED: NITROSTAT SL PRN (08:00)
--- NOTE | 2019-11-15 08:52 | DR.H&P ---
H&P History & Physical for Day of: H&P Date: 11/15/19 Chief Complaint Chief Complaint: shortness of breath and chest pain Allergies Allergies Allergy/AdvReac Type Severity Reaction Status Date / Time amoxicillin Allergy Verified 10/25/17 16:45 History of Present Illness History of Present Illness: Ms. Moore is a 69y/o female with CAD s/p PCI, severe COPD on continuous home oxygen, Multi-vessel CAD but not a candidate for CABG due to poor lung function presented to the ED with worsening SOB and chest pain. EMS noted the patient's sats to be in the 30s and she was placed on 5L and then non-rebreather. ED work-up - ABG: - CXR: b/l small pleural effusions, bibasilar atelectasis - Labs: WBC: 12.4, Hgb: 11.6 - Troponin: 0.03 - 0.1 - 0.44 EKG: NSR, no acute ST changes - COVID-19 negative Patient was placed on Bipap, given IV solumedrol, duonebs and levaquin. Overnight, patient remained on Bipap. ABG this AM shows 7.45/77/102/53.5, CO2 trending down. Patient placed on nasal canula this AM so she could eat, sats remained above 90%, patient only able to say few words and not speak in full sentences. Plan: will switch to Rocephin and Azithromycin, continue solumedrol, resume home medications. Continue BiPAP as tolerated and repeat ABG. Start gentle hydration. Continue duonebs. Charge nurse spoke to patient's son who is POA and stated that patient is DNR. He does not know where the document is but will speak to his sister and see if she can sign the paper for DNR as they had discussed before with patient. Will continue to monitor on telemetry, monitor labs. Past Medical History Past Medical History: Arthritis, COPD, Coronary Artery Disease, Depression, Dyslipidemia, GERD and Hypertension Past Surgical History Surgical History: Angioplasty/Stents and Family History Family Medical History: Diabetes Mellitus, Cancer and Hypertension Social History Does patient currently use any type of tobacco product: No Have you used tobacco products in the last 12 months: Yes Type of Tobacco Use: Cigarettes Alcohol Use: None Drug Use: None Medications Home Medications: amoxicillin Allergy (Verified 10/25/17 16:45) Labs Result Diagrams: 11/15/19 05:15 11/15/19 05:15 Labs: Laboratory WBC 17.5 X10^3/uL (3.6-10.0) H 11/15/19 05:15 RBC 3.98 X10^6/uL (3.5-5.4) 11/15/19 05:15 Hgb 11.4 g/dL (12.0-16.0) L 11/15/19 05:15 Hct 35.0 % (36.0-47.0) L 11/15/19 05:15 MCV 87.9 fL (80.0-100.0) 11/15/19 05:15 MCH 28.6 pg (27.0-34.0) 11/15/19 05:15 MCHC 32.5 g/dL (33.0-35.0) L 11/15/19 05:15 RDW 14.2 % (11.6-16.5) 11/15/19 05:15 Plt Count 386 X10^3/uL (150.0-450.0) 11/15/19 05:15 Plt Count Comment Adequate (ADEQUATE) 11/15/19 05:15 MPV 7.9 fL (7.4-11.0) 11/15/19 05:15 Neut % (Auto) 91.8 % (42.0-75.0) H 11/15/19 05:15 Lymph % (Auto) 1.9 % (21.0-51.0) L 11/15/19 05:15 [place] % (Auto) 6.2 % (0.0-13.0) 11/15/19 05:15 Eos % (Auto) 0.0 % (0.9-2.9) L 11/15/19 05:15 Baso % (Auto) 0.1 % (0.2-1.0) L 11/15/19 05:15 Neut # (Auto) 16.0 x10^3/uL (2.2-4.8) H 11/15/19 05:15 Lymph # (Auto) 0.3 X10^3/uL (1.3-2.9) L 11/15/19 05:15 [place] # (Auto) 1.1 x10^3/uL (0.3-0.8) H 11/15/19 05:15 Eos # (Auto) 0.0 x10^3/uL (0.0-0.2) 11/15/19 05:15 Baso # (Auto) 0.0 X10^3/uL (0.0-0.1) 11/15/19 05:15 Absolute Nucleated RBC 0.0 /100WBC 11/15/19 05:15 Total Counted 100 11/15/19 05:15 Neutrophils % (Manual) 86 % (39-76) H 11/15/19 05:15 Band Neutrophils % 3 % (0-10) 11/15/19 05:15 Lymphocytes % (Manual) 7 % (13-43) L 11/15/19 05:15 Monocytes % (Manual) 4 % (4-9) 11/15/19 05:15 Metamyelocytes % 1 11/14/19 15:28 Plt Morphology Comment Normal (NORMAL) 11/15/19 05:15 RBC Morphology Normal (NORMAL) 11/15/19 05:15 Hypochromasia Slight A 11/14/19 15:28 PT 11.8 SECONDS (11.8-14.3) 11/14/19 15:28 INR Target Range - 11/14/19 15:28 INR 0.89 (0.8-1.3) 11/14/19 15:28 APTT 26.6 SECONDS (22.9-36.5) 11/14/19 15:28 PTT Comment - 11/14/19 15:28 Sample Site Rb 11/15/19 05:15 ABG pH 7.450 (7.35-7.45) 11/15/19 05:15 ABG pCO2 77.0 mmHg (35.0-45.0) H* 11/15/19 05:15 ABG pO2 102.0 mmHg (80.0-100.0) H 11/15/19 05:15 ABG HCO3 53.5 mmol/L (22-26) H* 11/15/19 05:15 ABG O2 Saturation 98.0 % (90-100) 11/15/19 05:15 ABG Base Excess 24.8 mmol/L (-2.0-2.0) H 11/15/19 05:15 Isaac Test N/a 11/15/19 05:15 A-a Gradient 51.0 mmHg 11/15/19 05:15 FiO2 35.0 11/15/19 05:15 Blood Gas Comments Lucas well ae 11/15/19 05:15 Sodium 129 mmol/L (136-145) L 11/15/19 05:15 Corrected Sodium TNP 11/15/19 05:15 Potassium 4.8 mmol/L (3.5-5.1) 11/15/19 05:15 Chloride 83 mmol/L (98-107) L 11/15/19 05:15 Carbon Dioxide 43.0 mmol/L (21-32) H* 11/15/19 05:15 BUN 14 mg/dL (7-18) 11/15/19 05:15 Creatinine 0.53 mg/dL (0.55-1.02) L 11/15/19 05:15 Est GFR (MDRD) Af Amer > 60 (>60) 11/15/19 05:15 Est GFR (MDRD) Non-Af > 60 (>60) 11/15/19 05:15 Glucose 97 mg/dL (65-99) 11/15/19 05:15 POC Glucose (mg/dL) 97 mg/dL (65-99) 11/15/19 05:07 Calcium 9.7 mg/dL (8.5-10.1) 11/15/19 05:15 Corrected Calcium 10.3 mg/dL (8.5-10.1) H 11/15/19 05:15 Magnesium 1.8 mg/dL (1.7-2.9) 11/15/19 05:15 Total Bilirubin 0.30 mg/dL (0.2-1.0) 11/15/19 05:15 AST 25 Units/L (15-37) 11/15/19 05:15 ALT 18 Units/L (12-78) 11/15/19 05:15 Alkaline Phosphatase 117 Units/L (46-116) H 11/15/19 05:15 Creatine Kinase 83 Units/L (26-192) 11/15/19 05:15 CK-MB (CK-2) 6.3 ng/mL (0-4.0) H* 11/15/19 05:15 CK/CKMB % Calc 7.6 % (<4) 11/15/19 05:15 Troponin I 0.44 ng/mL (0-1.5) 11/15/19 05:15 Total Protein 7.2 g/dL (6.4-8.2) 11/15/19 05:15 Albumin 3.3 g/dL (3.4-5.0) L 11/15/19 05:15 Globulin 3.9 g/dL (2.5-4.5) 11/15/19 05:15 Albumin/Globulin Ratio 0.8 Ratio (1.1-2.1) L 11/15/19 05:15 Triglycerides 72 mg/dL (0-150) 11/15/19 05:15 Cholesterol 200 mg/dL (0-200) 11/15/19 05:15 LDL Cholesterol, Calc 76 mg/dL (0-100) 11/15/19 05:15 HDL Cholesterol 110 mg/dL (40-60) H 11/15/19 05:15 Cholesterol/HDL Ratio 1.8 (0.0-5.0) 11/15/19 05:15 Specimen Type Catherized urine 11/14/19 22:35 Urine Color Yellow (YELLOW) 11/14/19 22:35 Urine Appearance Hazy (CLEAR) 11/14/19 22:35 Urine pH 7.0 (5.0 - 8.0) 11/14/19 22:35 Ur Specific [place] 1.020 (1.000-1.030) 11/14/19 22:35 Urine Protein 3+ (NEGATIVE) 11/14/19 22:35 Urine Glucose (UA) Negative (NEGATIVE) 11/14/19: Urine Ketones 1+ (NEGATIVE) 11/14/19 22:35 Urine Occult Blood 1+ (NEGATIVE) 11/14/19 22:35 Urine Nitrite Positive (NEGATIVE) 11/14/19 22:35 Urine Bilirubin Negative (NEGATIVE) 11/14/19 22:35 Urine Urobilinogen Normal (NORMAL) 11/14/19 22: Ur Leukocyte Esterase Negative (NEGATIVE) 11/14/19 22:35 Urine RBC 3-5 /HPF (0-3) A 11/14/19 22:35 Urine WBC 5-10 /HPF (0-5) A 11/14/19 22:35 Ur Squamous Epith Cells Rare /HPF (NEGATIVE) 11/14/19 22:35 Amorphous Sediment 1+ /HPF (NEGATIVE) 11/14/19 22:35 Urine Bacteria 3+ /HPF (NEGATIVE) 11/14/19 22:35 Ur Culture Indicated? Yes/culture set up 11/14/19 22:35 SARS-CoV-2 (PCR) Negative (NEGATIVE) 11/14/19 18:05 Review of Systems Constitutional: Weakness and Malaise Eyes: No Symptoms Reported ENT: No Symptoms Reported Respiratory: Cough, Shortness of Breath, SOB with Excertion, Pleuritic Pain and Wheezing Cardiovascular: Chest Pain Gastrointestinal: No Symptoms Reported Genitourinary: No Symptoms Reported Musculoskeletal: Back Pain and Neck Pain Skin: No Symptoms Reported Neurological: No Symptoms Reported Physical Exam Vital Signs: Temperature 98.2 F Pulse Rate [Right Brachial] 91 Pulse Rate 98 Respiratory Rate 24 Blood Pressure [Right Arm] 178/96 Blood Pressure [Left Arm] 160/95 Blood Pressure 187/79 O2 Sat by Pulse Oximetry 98 Oriented: Unable to test Eyes: Normal Ear: Normal Throat: Dry Respiratory: Diminished Throughout and Wheezes Throughout Cardiovascular: Tachycardia Auscultation: Bowel Sounds: Normal Palpation: Normal Tenderness: Normal Skin: Normal Musculoskeletal: Back:Lumbar Psychiatric: Anxiety Mood Description: Anxious Affect: Anxious Speech Pattern: Appropriate and Delayed Assessment/Plan (1) Acute type 2 respiratory failure: Status: Acute (2) Chest pain, rule out acute myocardial infarction: Status: Acute (3) COPD exacerbation: Status: Acute (4) Scoliosis (and kyphoscoliosis), idiopathic: Status: Chronic (5) Hypertension: Qualifiers: Hypertension type: unspecified Qualified Code(s): I10 - Essential (primary) hypertension Status: Chronic (6) Back pain: Qualifiers: Back pain laterality: bilateral Back pain location: low back pain Chronicity: acute Sciatica presence: without sciatica Qualified Code(s): M54.5 - Low back pain Status: Chronic (7) DJD (degenerative joint disease): Qualifiers: Osteoarthritis location: multiple joints Osteoarthritis type: unspecified Qualified Code(s): M15.9 - Polyosteoarthritis, unspecified Status: Chronic (8) Respiratory acidosis: Status: Acute (9) Anxiety: Status: Chronic (10) Multi-vessel coronary artery stenosis: Status: Acute Review H&P Reviewed: Yes Patient was examined?: Yes
[2019-11-15] MEDS ORDERED: UMECLIDINIUM VILANTEROL IN SCH (09:00)
[2019-11-15] MEDS ORDERED: PROTONIX TAB 40 MG PO SCH (09:00)
[2019-11-15] MEDS ORDERED: ASPIRIN 81 MG CHEWTAB PO SCH (09:00)
[2019-11-15] MEDS ORDERED: PREDNISONE TAB 20 MG PO SCH (09:00)
[2019-11-15] MEDS ORDERED: ZITHROMAX TAB 250 MG PO SCH (09:00)
[2019-11-15] MEDS ORDERED: LOVENOX INJ 40 MG SYR SC SCH (09:00)
[2019-11-15] MEDS ORDERED: PLAVIX PO SCH (09:00)
[2019-11-15] MEDS: ROCEPHIN VIAL 1 GRAM 1 G in NS 100 ML IV + SPIKE MINIBAG* 100 ML IV SCH ×2 (10:16→10:24)
[2019-11-15] MEDS: PROTONIX INJ 40 MG VIAL IVP SCH (10:17)
[2019-11-15] MEDS: SINGULAIR TAB 10 MG PO SCH ×2 (10:17→12:12)
[2019-11-15] MEDS ORDERED: ATIVAN INJ 2 MG VIAL IVP PRN (10:33)
[2019-11-15] MEDS: MORPHINE SULFATE INJ 2 MG INJ IVP PRN ×2 (11:15→17:58)
[2019-11-15] MEDS: SOLU-Medrol 125 MG VIAL IVP SCH ×3 (11:18→21:03)
[2019-11-15] MEDS: ISOSORBIDE MONONITRATE ER 24-HR PO SCH (12:12)
[2019-11-15 12:25] VITALS: BMI 13.0
[2019-11-15] MEDS ORDERED: NS 250 ML IV 250 ML IV ONE (12:36)
[2019-11-15] MEDS ORDERED: ZITHROMAX INJ 500 MG VIAL IV ONE (12:36)
[2019-11-15] MEDS: ZITHROMAX INJ 500 MG VIAL 250 MG in D5W 250 ML IV 250 ML IV SCH (12:37)
[2019-11-15] MEDS ORDERED: APRESOLINE INJ 20 MG VIAL IVP PRN (14:40)
[2019-11-15] MEDS ORDERED: TYLENOL SUPP 650 MG PR PRN (15:16)
[2019-11-15] MEDS ORDERED: TYLENOL SUPP 650 MG ONE (15:26)
[2019-11-16] MEDS ORDERED: LOPRESSOR INJ 5 MG AMP ONE ×2 (00:08→01:04)
[2019-11-16] MEDS ORDERED: LOPRESSOR INJ 5 MG AMP IVP ONE ×2 (00:09→01:03)
[2019-11-16] MEDS: MORPHINE SULFATE INJ 2 MG INJ IVP PRN ×2 (00:20→13:34)
[2019-11-16] MEDS: DUONEB 0.5 MG/3 MG (3 mL) NEB SCH (00:23)
[2019-11-16] MEDS ORDERED: NS 100 ML IV 100 ML IV ONE (01:55)
[2019-11-16] MEDS ORDERED: CARDIZEM INJ 125 MG VIAL ONE (01:55)
[2019-11-16] MEDS: CARDIZEM INJ 125 MG VIAL 125 MG in NS 100 ML IV 100 ML IV PRN ×2 (02:12→10:54)
[2019-11-16] MEDS: NEURONTIN CAP 300 MG PO SCH ×2 (05:55→14:50)
[2019-11-16] MEDS: SOLU-Medrol 125 MG VIAL IVP SCH ×2 (05:56→14:50)
[2019-11-16] MEDS: HumuLIN R SC SCH ×2 (05:56→11:50)
[2019-11-16 06:01] LABS: BLOOD UREA NITROGEN 39 mg/dL (7-18); CALCIUM 9.1 mg/dL (8.5-10.1); CHLORIDE 90 mmol/L (98-107); COR NA(FOR HYPERGLY) 134 mmol/L (136-145); CREATININE 0.83 mg/dL (0.55-1.02); SODIUM 134 mmol/L (136-145); eGFR NON BLACK RACES > 60 (>60)
[2019-11-16 06:08] LABS: BASOPHILS % (AUTO) 0.1 % (0.2-1.0); HEMATOCRIT 32.5 % (36.0-47.0); HEMOGLOBIN 10.7 g/dL (12.0-16.0); LYMPHOCYTES # (AUTO) 0.4 X10^3/uL (1.3-2.9); LYMPHOCYTES % (AUTO) 5.6 % (21.0-51.0); MEAN CORPUSCULAR HEMOGLOBIN 29.1 pg (27.0-34.0); MEAN CORPUSCULAR VOLUME 88.2 fL (80.0-100.0); MEAN PLATELET VOLUME 8.3 fL (7.4-11.0); MONOCYTES # (AUTO) 0.6 x10^3/uL (0.3-0.8); MONOCYTES % (AUTO) 8.2 % (0.0-13.0); NEUTROPHILS # (AUTO) 6.8 x10^3/uL (2.2-4.8); NEUTROPHILS % (AUTO) 86.1 % (42.0-75.0); PLATELET COUNT 393 X10^3/uL (150.0-450.0); RED BLOOD COUNT 3.68 X10^6/uL (3.5-5.4); RED CELL DISTRIBUTION WIDTH 14.5 % (11.6-16.5); WHITE BLOOD COUNT 7.9 X10^3/uL (3.6-10.0)
[2019-11-16] MEDS ORDERED: CORDARONE INJ 150 MG VIAL IVP ONE (06:21)
[2019-11-16] MEDS ORDERED: NEXTERONE IV ONE ×2 (06:28→07:00)
[2019-11-16] MEDS ORDERED: NEXTERONE IV 360 MG PREMIX* 360 MG/200 ML BAG IV PRN (08:02)
[2019-11-16] MEDS ORDERED: HEPARIN SODIUM IN D5W 25,000 UNITS/500 ML BAG IV PRN (08:07)
[2019-11-16] MEDS ORDERED: HEPARIN SODIUM IN D5W 25,000 UNITS/500 ML BAG IV ONE (08:14)
[2019-11-16] MEDS ORDERED: LEVAQUIN TAB 750 MG PO SCH (09:00)
[2019-11-16 09:11] LABS: CKMB % 6.1 % (<4)
[2019-11-16 09:15] LABS: CREATINE KINASE MB 6.3 ng/mL (0-4.0); TROPONIN I 2.26 ng/mL (0-1.5)
[2019-11-16] MEDS ORDERED: ELIQUIS PO SCH (09:15)
[2019-11-16] MEDS ORDERED: NS 1000 ML 1,000 ML IV SCH (10:00)
[2019-11-16] MEDS: ISOSORBIDE MONONITRATE ER 24-HR PO SCH (10:45)
[2019-11-16] MEDS: PROTONIX INJ 40 MG VIAL IVP SCH (10:49)
[2019-11-16] MEDS: ROCEPHIN VIAL 1 GRAM 1 G in NS 100 ML IV + SPIKE MINIBAG* 100 ML IV SCH (10:56)
[2019-11-16] MEDS: ZITHROMAX INJ 500 MG VIAL 250 MG in D5W 250 ML IV 250 ML IV SCH (10:56)
[2019-11-16] MEDS: SINGULAIR TAB 10 MG PO SCH (11:45)
--- NOTE | 2019-11-16 13:16 | PCM.PROG ---
Progress Note Progress Note for Day of Date of Exam: 11/16/19 Subjective Subjective: Patient went into afib RVR overnight, HR in 170s-180s. Received metoprolol tartrate 5 mg IV x 2 but HR continued to remain elevated. Patient remained on BiPAP. Diltiazem drip started and maxed out at 15 mg/hr. Amiodarone loading dose given and patient's HR dropped to 80s and converted to NSR. Patient was started on amiodarone drip along with heparin drip. Patient has not been able to come off the BiPAP since admission, unable to take PO medications. Labs: troponin 2.26 elevated CK-MB, Hgb: 10.7 Na: 134 Cl: 90 BUN/Cr: 39/0.83 CO2:37 Dr. Arce consulted for further recommendations. He suggested medical management with oral amiodarone, switch to eliquis. Continue IVF. Patient was taken off BiPAP this morning but within 20 mins she had increased work of breathing and very anxious and was placed back on BiPAP. Patient's son who is POA was present at bedside. Care discussed with him. Family meeting held between patient's son and 2 daughters. Son stated that patient had mentioned several times in the past that she does not want life support including artificial ventilation or feeding tube. Discussed patient's poor prognosis due to severe COPD and multiple vessel CAD. Patient has not been able to talk in full sentences, only speaks with a few words and appears to be i n distress. Patient is a poor candidate for CABG, evaluated in [place] during her prev hospitalization. Discussed further options including comfort care and hospice. Family in agreement with keeping patient comfortable. They would like to take off the BiPAP and see how patient does on nasal canula. They are considering comfort care at [facility]. Patient is DNR, son signed form. He is also POA. Past Medical Family Social History Past Med/Fam/Surg Hx: No changes since H&P Allergies: Allergies amoxicillin Allergy (Verified 10/25/17 16:45) Review of Systems ROS: No change since H&P Vital Signs and I&O's Vital Signs: Temperature 98.5 F Pulse Rate [Left Brachial] 82 Pulse Rate [Right Brachial] 189 Pulse Rate 85 Respiratory Rate 26 Blood Pressure [Right Arm] 112/64 Blood Pressure [Left Arm] 110/70 Blood Pressure 128/74 O2 Sat by Pulse Oximetry 94 Intake and Output: Intake & Output 11/13/19 11/14/19 11/15/19 11/16/19 23:59 23:59 23:59 23:59 Intake Total 150 / 150 740 / 740 125 / 125 Output Total 500 / 500 1100 / 1100 100 / 100 Balance -350 / -350 -360 / -360 Physical Exam Oriented: Unable to test Eyes: Normal Ear: Normal Throat: Dry Respiratory: Generalized and Diminished Cardiovascular: Tachycardia Auscultation: Bowel Sounds: Normal Tenderness: Normal Skin: Normal Musculoskeletal: Back:Lumbar Psychiatric: Anxiety Mood Description: Anxious Affect: Anxious Speech Pattern: Artificially Ventilated (on Bipap) Laboratory and Diagnostics Result Diagrams: 11/16/19 05:22 11/16/19 05:22 Labs: 11/14/19 22:35 Urine,Catheterized Urine Culture - Preliminary Laboratory WBC 7.9 X10^3/uL (3.6-10.0) D 11/16/19 05:22 RBC 3.68 X10^6/uL (3.5-5.4) 11/16/19 05:22 Hgb 10.7 g/dL (12.0-16.0) L 11/16/19 05:22 Hct 32.5 % (36.0-47.0) L 11/16/19 05:22 MCV 88.2 fL (80.0-100.0) 11/16/19 05:22 MCH 29.1 pg (27.0-34.0) 11/16/19 05:22 MCHC 33.0 g/dL (33.0-35.0) 11/16/19 05:22 RDW 14.5 % (11.6-16.5) 11/16/19 05:22 Plt Count 393 X10^3/uL (150.0-450.0) 11/16/19 05:22 Plt Count Comment Adequate (ADEQUATE) 11/15/19 05:15 MPV 8.3 fL (7.4-11.0) 11/16/19 05:22 Neut % (Auto) 86.1 % (42.0-75.0) H 11/16/19 05:22 Lymph % (Auto) 5.6 % (21.0-51.0) L 11/16/19 05:22 Grand % (Auto) 8.2 % (0.0-13.0) 11/16/19 05:22 Eos % (Auto) 0.0 % (0.9-2.9) L 11/16/19 05:22 Baso % (Auto) 0.1 % (0.2-1.0) L 11/16/19 05:22 Neut # (Auto) 6.8 x10^3/uL (2.2-4.8) H 11/16/19 05:22 Lymph # (Auto) 0.4 X10^3/uL (1.3-2.9) L 11/16/19 05:22 Grand # (Auto) 0.6 x10^3/uL (0.3-0.8) 11/16/19 05:22 Eos # (Auto) 0.0 x10^3/uL (0.0-0.2) 11/16/19 05:22 Baso # (Auto) 0.0 X10^3/uL (0.0-0.1) 11/16/19 05:22 Absolute Nucleated RBC 0.1 /100WBC 11/16/19 05:22 Total Counted 100 11/15/19 05:15 Neutrophils % (Manual) 86 % (39-76) H 11/15/19 05:15 Band Neutrophils % 3 % (0-10) 11/15/19 05:15 Lymphocytes % (Manual) 7 % (13-43) L 11/15/19 05:15 Monocytes % (Manual) 4 % (4-9) 11/15/19 05:15 Metamyelocytes % 1 11/14/19 15:28 Plt Morphology Comment Normal (NORMAL) 11/15/19 05:15 RBC Morphology Normal (NORMAL) 11/15/19 05:15 Hypochromasia Slight A 11/14/19 15:28 PT 15.0 SECONDS (11.8-14.3) 11/16/19 05:22 INR Target Range - 11/16/19 05:22 INR 1.22 (0.8-1.3) 11/16/19 05:22 APTT 32.0 SECONDS (22.9-36.5) 11/16/19 05:22 PTT Comment - 11/16/19 05:22 Sample Site Rb 11/15/19 05:15 ABG pH 7.450 (7.35-7.45) 11/15/19 05:15 ABG pCO2 77.0 mmHg (35.0-45.0) H* 11/15/19 05:15 ABG pO2 102.0 mmHg (80.0-100.0) H 11/15/19 05:15 ABG HCO3 53.5 mmol/L (22-26) H* 11/15/19 05:15 ABG O2 Saturation 98.0 % (90-100) 11/15/19 05:15 ABG Base Excess 24.8 mmol/L (-2.0-2.0) H 11/15/19 05:15 Isaac Test N/a 11/15/19 05:15 A-a Gradient 51.0 mmHg 11/15/19 05:15 FiO2 35.0 11/15/19 05:15 Blood Gas Comments Lucas well ae 11/15/19 05:15 Sodium 134 mmol/L (136-145) L 11/16/19 05:22 Corrected Sodium 134 mmol/L (136-145) L 11/16/19 05:22 Potassium 4.4 mmol/L (3.5-5.1) 11/16/19 05:22 Chloride 90 mmol/L (98-107) L 11/16/19 05:22 Carbon Dioxide 37.0 mmol/L (21-32) H 11/16/19 05:22 BUN 39 mg/dL (7-18) H 11/16/19 05:22 Creatinine 0.83 mg/dL (0.55-1.02) 11/16/19 05:22 Est GFR (MDRD) Af Amer > 60 (>60) 11/16/19 05:22 Est GFR (MDRD) Non-Af > 60 (>60) 11/16/19 05:22 Glucose 119 mg/dL (65-99) H 11/16/19 05:22 POC Glucose (mg/dL) 128 mg/dL (65-99) H 11/16/19 11:48 Calcium 9.1 mg/dL (8.5-10.1) 11/16/19 05:22 Corrected Calcium 10.3 mg/dL (8.5-10.1) H 11/15/19 05:15 Magnesium 1.8 mg/dL (1.7-2.9) 11/15/19 05:15 Total Bilirubin 0.30 mg/dL (0.2-1.0) 11/15/19 05:15 AST 25 Units/L (15-37) 11/15/19 05:15 ALT 18 Units/L (12-78) 11/15/19 05:15 Alkaline Phosphatase 117 Units/L (46-116) H 11/15/19 05:15 Creatine Kinase 104 Units/L (26-192) 11/16/19 08:10 CK-MB (CK-2) 6.3 ng/mL (0-4.0) H* 11/16/19 08:10 CK/CKMB % Calc 6.1 % (<4) 11/16/19 08:10 Troponin I 2.26 ng/mL (0-1.5) H* 11/16/19 08:10 Total Protein 7.2 g/dL (6.4-8.2) 11/15/19 05:15 Albumin 3.3 g/dL (3.4-5.0) L 11/15/19 05:15 Globulin 3.9 g/dL (2.5-4.5) 11/15/19 05:15 Albumin/Globulin Ratio 0.8 Ratio (1.1-2.1) L 11/15/19 05:15 Triglycerides 72 mg/dL (0-150) 11/15/19 05:15 Cholesterol 200 mg/dL (0-200) 11/15/19 05:15 LDL Cholesterol, Calc 76 mg/dL (0-100) 11/15/19 05:15 HDL Cholesterol 110 mg/dL (40-60) H 11/15/19 05:15 Cholesterol/HDL Ratio 1.8 (0.0-5.0) 11/15/19 05:15 Specimen Type Catherized urine 11/14/19 22:35 Urine Color Yellow (YELLOW) 11/14/19 22:35 Urine Appearance Hazy (CLEAR) 11/14/19 22:35 Urine pH 7.0 (5.0 - 8.0) 11/14/19 22:35 Ur Specific [place] 1.020 (1.000-1.030) 11/14/19 22:35 Urine Protein 3+ (NEGATIVE) 06/22/20 22:35 Urine Glucose (UA) Negative (NEGATIVE) 11/14/19 22:35 Urine Ketones 1+ (NEGATIVE) 11/14/19 22:35 Urine Occult Blood 1+ (NEGATIVE) 11/14/19 22:35 Urine Nitrite Positive (NEGATIVE) 11/14/19 22:35 Urine Bilirubin Negative (NEGATIVE) 11/14/19 22:35 Urine Urobilinogen Normal (NORMAL) 11/14/19 22:35 Ur Leukocyte Esterase Negative (NEGATIVE) 11/14/19 22:35 Urine RBC 3-5 /HPF (0-3) A 11/14/19 22:35 Urine WBC 5-10 /HPF (0-5) A 11/14/19 22:35 Ur Squamous Epith Cells Rare /HPF (NEGATIVE) 11/14/19 22:35 Amorphous Sediment 1+ /HPF (NEGATIVE) 11/14/19 22:35 Urine Bacteria 3+ /HPF (NEGATIVE) 11/14/19 22:35 Ur Culture Indicated? Yes/culture set up 11/14/19 22:35 SARS-CoV-2 (PCR) Negative (NEGATIVE) 11/14/19 18:05 Plan (1) BiPAP (biphasic positive airway pressure) dependence: Status: Acute (2) Atrial fibrillation with rapid ventricular response: Status: Acute (3) Acute type 2 respiratory failure: Status: Acute (4) Chest pain, rule out acute myocardial infarction: Status: Acute (5) COPD exacerbation: Status: Acute (6) Scoliosis (and kyphoscoliosis), idiopathic: Status: Chronic (7) Hypertension: Status: Chronic Qualifiers: Hypertension type: unspecified Qualified Code(s): I10 - Essential (primary) hypertension (8) Back pain: Status: Chronic Qualifiers: Back pain laterality: bilateral Back pain location: low back pain Chronicity: acute Sciatica presence: without sciatica Qualified Code(s): M54.5 - Low back pain (9) DJD (degenerative joint disease): Status: Chronic Qualifiers: Osteoarthritis location: multiple joints Osteoarthritis type: unspecified Qualified Code(s): M15.9 - Polyosteoarthritis, unspecified (10) Respiratory acidosis: Status: Acute (11) Anxiety: Status: Chronic (12) Multi-vessel coronary artery stenosis: Status: Acute
[2019-11-16] MEDS ORDERED: ATIVAN INJ 2 MG VIAL IVP PRN ×2 (14:18→15:43)
[2019-11-16] MEDS ORDERED: MORPHINE SULFATE INJ 2 MG INJ IVP PRN (15:43)
[2019-11-16] MEDS ORDERED: TRANSDERM-SCOP TD SCH (16:00)
[2019-11-16] MEDS ORDERED: CORDARONE TAB 200 MG PO SCH (17:00)
[2019-11-16 17:52] VITALS: BP 153/72
--- NOTE | 2019-11-17 08:57 | W.DIS.FURT ---
Summary of Discharge Admission Diagnosis Vital Signs: Vital Signs (72 hours) 11/14/19 15:03 11/14/19 15:20 11/14/19 15:30 Temperature 97.7 F Pulse Rate 88 88 91 H Pulse Rate [Left Brachial] Pulse Rate [Right Brachial] Respiratory Rate 37 H 27 H 24 Blood Pressure 207/100 203/86 202/91 Blood Pressure [Left Arm] Blood Pressure [Right Arm] O2 Sat by Pulse Oximetry 95 97 96 11/14/19 15:40 11/14/19 15:45 11/14/19 15:51 Temperature Pulse Rate 88 85 85 Pulse Rate [Left Brachial] Pulse Rate [Right Brachial] Respiratory Rate 28 H 27 H Blood Pressure 203/94 165/76 Blood Pressure [Left Arm] Blood Pressure [Right Arm] O2 Sat by Pulse Oximetry 98 92 L 89 L 11/14/19 16:00 11/14/19 16:10 11/14/19 16:15 Temperature Pulse Rate 85 91 H 85 Pulse Rate [Left Brachial] Pulse Rate [Right Brachial] Respiratory Rate 29 H 21 31 H Blood Pressure 176/78 152/69 Blood Pressure [Left Arm] Blood Pressure [Right Arm] O2 Sat by Pulse Oximetry 95 88 L 91 L 11/14/19 16:20 11/14/19 16:30 11/14/19 16:38 Temperature Pulse Rate 87 76 78 Pulse Rate [Left Brachial] Pulse Rate [Right Brachial] Respiratory Rate 27 H 34 H 22 Blood Pressure 163/74 140/67 Blood Pressure [Left Arm] Blood Pressure [Right Arm] O2 Sat by Pulse Oximetry 89 L 91 L 94 L 11/14/19 16:40 11/14/19 16:45 11/14/19 16:50 Temperature Pulse Rate 73 86 Pulse Rate [Left Brachial] Pulse Rate [Right Brachial] Respiratory Rate 30 H 32 H Blood Pressure 166/73 134/65 Blood Pressure [Left Arm] Blood Pressure [Right Arm] O2 Sat by Pulse Oximetry 95 91 L 11/14/19 16:59 11/14/19 17:00 11/14/19 17:10 Temperature Pulse Rate 70 78 75 Pulse Rate [Left Brachial] Pulse Rate [Right Brachial] Respiratory Rate 17 32 H 18 Blood Pressure 172/73 159/74 Blood Pressure [Left Arm] Blood Pressure [Right Arm] O2 Sat by Pulse Oximetry 96 91 L 94 L 11/14/19 17:15 11/14/19 17:20 11/14/19 17:30 Temperature Pulse Rate 79 92 H 100 H Pulse Rate [Left Brachial] Pulse Rate [Right Brachial] Respiratory Rate 29 H 21 15 Blood Pressure 176/79 185/90 Blood Pressure [Left Arm] Blood Pressure [Right Arm] O2 Sat by Pulse Oximetry 90 L 93 L 90 L 11/14/19 17:40 11/14/19 17:45 11/14/19 17:50 Temperature Pulse Rate 90 99 H 85 Pulse Rate [Left Brachial] Pulse Rate [Right Brachial] Respiratory Rate 18 36 H 49 H Blood Pressure 213/95 195/90 Blood Pressure [Left Arm] Blood Pressure [Right Arm] O2 Sat by Pulse Oximetry 93 L 89 L 94 L 11/14/19 17:59 11/14/19 18:00 11/14/19 18:10 Temperature Pulse Rate 90 93 H Pulse Rate [Left Brachial] Pulse Rate [Right Brachial] Respiratory Rate 24 19 21 Blood Pressure 164/75 170/93 Blood Pressure [Left Arm] Blood Pressure [Right Arm] O2 Sat by Pulse Oximetry 96 94 L 11/14/19 18:15 11/14/19 18:20 11/14/19 18:30 Temperature Pulse Rate 93 H 91 H 96 H Pulse Rate [Left Brachial] Pulse Rate [Right Brachial] Respiratory Rate 27 H 16 26 H Blood Pressure 169/74 142/70 Blood Pressure [Left Arm] Blood Pressure [Right Arm] O2 Sat by Pulse Oximetry 96 97 97 11/14/19 18:40 11/14/19 18:45 11/14/19 18:50 Temperature Pulse Rate 90 97 H 92 H Pulse Rate [Left Brachial] Pulse Rate [Right Brachial] Respiratory Rate 31 H 26 H 24 Blood Pressure 140/72 127/76 Blood Pressure [Left Arm] Blood Pressure [Right Arm] O2 Sat by Pulse Oximetry 98 99 98 11/14/19 19:00 11/14/19 19:10 11/14/19 19:15 Temperature Pulse Rate 88 82 Pulse Rate [Left Brachial] Pulse Rate [Right Brachial] Respiratory Rate 49 H 32 H Blood Pressure 149/70 153/82 Blood Pressure [Left Arm] Blood Pressure [Right Arm] O2 Sat by Pulse Oximetry 96 100 11/14/19 19:20 11/14/19 19:30 11/14/19 19:40 Temperature Pulse Rate 82 80 79 Pulse Rate [Left Brachial] Pulse Rate [Right Brachial] Respiratory Rate 24 30 H 23 Blood Pressure 153/78 167/74 158/75 Blood Pressure [Left Arm] Blood Pressure [Right Arm] O2 Sat by Pulse Oximetry 100 99 98 11/14/19 19:45 11/14/19 19:50 11/14/19 20:00 Temperature Pulse Rate 79 85 79 Pulse Rate [Left Brachial] Pulse Rate [Right Brachial] Respiratory Rate 29 H 31 H 28 H Blood Pressure 161/79 177/84 Blood Pressure [Left Arm] Blood Pressure [Right Arm] O2 Sat by Pulse Oximetry 92 L 97 99 11/14/19 20:10 11/14/19 20:15 11/14/19 20:20 Temperature Pulse Rate 79 79 84 Pulse Rate [Left Brachial] Pulse Rate [Right Brachial] Respiratory Rate 23 23 31 H Blood Pressure 179/89 Blood Pressure [Left Arm] Blood Pressure [Right Arm] O2 Sat by Pulse Oximetry 99 98 97 11/14/19 20:30 11/14/19 20:40 11/14/19 20:45 Temperature Pulse Rate 80 80 87 Pulse Rate [Left Brachial] Pulse Rate [Right Brachial] Respiratory Rate 26 H 28 H 36 H Blood Pressure 187/79 Blood Pressure [Left Arm] Blood Pressure [Right Arm] O2 Sat by Pulse Oximetry 96 99 100 11/14/19 20:51 11/14/19 21:01 11/14/19 21:30 Temperature Pulse Rate 98 H 97 H 100 H Pulse Rate [Left Brachial] Pulse Rate [Right Brachial] Respiratory Rate 31 H 24 Blood Pressure Blood Pressure [Left Arm] Blood Pressure [Right Arm] O2 Sat by Pulse Oximetry 97 90 L 100 11/14/19 21:45 11/15/19 00:00 11/15/19 00:30 Temperature 98.0 F 97.6 F Pulse Rate 98 H Pulse Rate [Left Brachial] Pulse Rate [Right Brachial] 75 80 Respiratory Rate 24 24 Blood Pressure Blood Pressure [Left Arm] Blood Pressure [Right Arm] 139/72 168/92 O2 Sat by Pulse Oximetry 98 100 69 L 11/15/19 00:50 11/15/19 01:50 11/15/19 04:00 Temperature 98.2 F Pulse Rate Pulse Rate [Left Brachial] Pulse Rate [Right Brachial] 91 H Respiratory Rate 22 20 24 Blood Pressure Blood Pressure [Left Arm] Blood Pressure [Right Arm] 178/96 O2 Sat by Pulse Oximetry 98 11/15/19 08:00 11/15/19 09:00 11/15/19 10:00 Temperature 97.8 F 97.4 F L 97.7 F Pulse Rate Pulse Rate [Left Brachial] Pulse Rate [Right Brachial] 123 H 112 H 124 H Respiratory Rate 24 23 31 H Blood Pressure Blood Pressure [Left Arm] Blood Pressure [Right Arm] 198/95 152/96 164/110 O2 Sat by Pulse Oximetry 100 98 98 11/15/19 11:00 11/15/19 11:15 11/15/19 11:45 Temperature 98.4 F Pulse Rate Pulse Rate [Left Brachial] Pulse Rate [Right Brachial] 109 H Respiratory Rate 30 H 25 H 23 Blood Pressure Blood Pressure [Left Arm] Blood Pressure [Right Arm] 169/103 O2 Sat by Pulse Oximetry 97 11/15/19 12:00 11/15/19 12:50 11/15/19 13:00 Temperature 97.7 F 97.8 F Pulse Rate 100 H Pulse Rate [Left Brachial] Pulse Rate [Right Brachial] 113 H 123 H Respiratory Rate 26 H 27 H Blood Pressure Blood Pressure [Left Arm] Blood Pressure [Right Arm] 175/84 178/84 O2 Sat by Pulse Oximetry 100 97 97 11/15/19 15:31 11/15/19 16:00 11/15/19 16:31 Temperature 101.0 F H Pulse Rate Pulse Rate [Left Brachial] Pulse Rate [Right Brachial] 132 H Respiratory Rate 28 H 28 H 25 H Blood Pressure Blood Pressure [Left Arm] Blood Pressure [Right Arm] 175/101 O2 Sat by Pulse Oximetry 100 11/15/19 16:45 11/15/19 17:58 11/15/19 18:04 Temperature 98.2 F Pulse Rate 157 H Pulse Rate [Left Brachial] Pulse Rate [Right Brachial] 122 H Respiratory Rate 26 H 25 H Blood Pressure Blood Pressure [Left Arm] Blood Pressure [Right Arm] 144/83 O2 Sat by Pulse Oximetry 97 97 11/15/19 18:28 11/15/19 20:00 11/16/19 00:00 Temperature 100 F H 98.9 F Pulse Rate Pulse Rate [Left Brachial] Pulse Rate [Right Brachial] 121 H 133 H Respiratory Rate 26 H 28 H 23 Blood Pressure Blood Pressure [Left Arm] 160/91 149/83 Blood Pressure [Right Arm] O2 Sat by Pulse Oximetry 97 95 11/16/19 00:11 11/16/19 00:13 11/16/19 00:20 Temperature Pulse Rate Pulse Rate [Left Brachial] Pulse Rate [Right Brachial] 200 H Respiratory Rate 28 H Blood Pressure 146/91 Blood Pressure [Left Arm] Blood Pressure [Right Arm] 146/91 O2 Sat by Pulse Oximetry 98 11/16/19 00:50 11/16/19 01:07 11/16/19 02:00 Temperature 98.9 F Pulse Rate Pulse Rate [Left Brachial] 176 H Pulse Rate [Right Brachial] 189 H Respiratory Rate 28 H 28 H Blood Pressure 128/74 Blood Pressure [Left Arm] 128/74 131/96 Blood Pressure [Right Arm] O2 Sat by Pulse Oximetry 99 11/16/19 03:00 11/16/19 04:00 11/16/19 04:52 Temperature 97.6 F Pulse Rate 110 H Pulse Rate [Left Brachial] 182 H 175 H Pulse Rate [Right Brachial] Respiratory Rate 27 H 24 Blood Pressure Blood Pressure [Left Arm] 116/76 105/74 Blood Pressure [Right Arm] O2 Sat by Pulse Oximetry 99 99 99 11/16/19 05:00 11/16/19 06:00 11/16/19 07:00 Temperature 97.5 F L Pulse Rate Pulse Rate [Left Brachial] 185 H 187 H 81 Pulse Rate [Right Brachial] Respiratory Rate 25 H 26 H 23 Blood Pressure Blood Pressure [Left Arm] 102/74 110/70 Blood Pressure [Right Arm] 109/63 O2 Sat by Pulse Oximetry 98 99 85 L 11/16/19 08:00 11/16/19 09:00 11/16/19 10:00 Temperature Pulse Rate Pulse Rate [Left Brachial] 89 91 H 85 Pulse Rate [Right Brachial] Respiratory Rate 20 20 33 H Blood Pressure Blood Pressure [Left Arm] Blood Pressure [Right Arm] 150/90 137/88 170/73 O2 Sat by Pulse Oximetry 91 L 100 92 L 11/16/19 11:00 11/16/19 12:00 11/16/19 12:25 Temperature 98.5 F Pulse Rate 85 Pulse Rate [Left Brachial] 82 85 Pulse Rate [Right Brachial] Respiratory Rate 26 H 29 H Blood Pressure Blood Pressure [Left Arm] Blood Pressure [Right Arm] 112/64 154/78 O2 Sat by Pulse Oximetry 93 L 93 L 94 L 11/16/19 13:00 11/16/19 13:34 11/16/19 14:00 Temperature Pulse Rate Pulse Rate [Left Brachial] 78 76 Pulse Rate [Right Brachial] Respiratory Rate 20 24 32 H Blood Pressure Blood Pressure [Left Arm] Blood Pressure [Right Arm] 130/63 126/60 O2 Sat by Pulse Oximetry 93 L 97 11/16/19 14:04 11/16/19 15:00 11/16/19 16:00 Temperature 97.5 F L Pulse Rate Pulse Rate [Left Brachial] 73 76 Pulse Rate [Right Brachial] Respiratory Rate 26 H 20 20 Blood Pressure Blood Pressure [Left Arm] Blood Pressure [Right Arm] 133/74 153/72 O2 Sat by Pulse Oximetry 100 99 Labs: Laboratory Last Values WBC 7.9 X10^3/uL (3.6-10.0) D 11/16/19 05:22 RBC 3.68 X10^6/uL (3.5-5.4) 11/16/19 05:22 Hgb 10.7 g/dL (12.0-16.0) L 11/16/19 05:22 Hct 32.5 % (36.0-47.0) L 11/16/19 05:22 MCV 88.2 fL (80.0-100.0) 11/16/19 05:22 MCH 29.1 pg (27.0-34.0) 11/16/19 05:22 MCHC 33.0 g/dL (33.0-35.0) 11/16/19 05:22 RDW 14.5 % (11.6-16.5) 11/16/19 05:22 Plt Count 393 X10^3/uL (150.0-450.0) 11/16/19 05:22 Plt Count Comment Adequate (ADEQUATE) 11/15/19 05:15 MPV 8.3 fL (7.4-11.0) 11/16/19 05:22 Neut % (Auto) 86.1 % (42.0-75.0) H 11/16/19 05:22 Lymph % (Auto) 5.6 % (21.0-51.0) L 11/16/19 05:22 [place] % (Auto) 8.2 % (0.0-13.0) 11/16/19 05:22 Eos % (Auto) 0.0 % (0.9-2.9) L 11/16/19 05:22 Baso % (Auto) 0.1 % (0.2-1.0) L 11/16/19 05:22 Neut # (Auto) 6.8 x10^3/uL (2.2-4.8) H 11/16/19 05:22 Lymph # (Auto) 0.4 X10^3/uL (1.3-2.9) L 11/16/19 05:22 [place] # (Auto) 0.6 x10^3/uL (0.3-0.8) 11/16/19 05:22 Eos # (Auto) 0.0 x10^3/uL (0.0-0.2) 11/16/19 05:22 Baso # (Auto) 0.0 X10^3/uL (0.0-0.1) 11/16/19 05:22 Absolute Nucleated RBC 0.1 /100WBC 11/16/19 05:22 Total Counted 100 11/15/19 05:15 Neutrophils % (Manual) 86 % (39-76) H 11/15/19 05:15 Band Neutrophils % 3 % (0-10) 11/15/19 05:15 Lymphocytes % (Manual) 7 % (13-43) L 11/15/19 05:15 Monocytes % (Manual) 4 % (4-9) 11/15/19 05:15 Metamyelocytes % 1 11/14/19 15:28 Plt Morphology Comment Normal (NORMAL) 11/15/19 05:15 RBC Morphology Normal (NORMAL) 11/15/19 05:15 Hypochromasia Slight A 11/14/19 15:28 PT 15.0 SECONDS (11.8-14.3) 11/16/19 05:22 INR Target Range - 11/16/19 05:22 INR 1.22 (0.8-1.3) 11/16/19 05:22 APTT 32.0 SECONDS (22.9-36.5) 11/16/19 05:22 PTT Comment - 11/16/19 05:22 Sample Site Rb 11/15/19 05:15 ABG pH 7.450 (7.35-7.45) 11/15/19 05:15 ABG pCO2 77.0 mmHg (35.0-45.0) H* 11/15/19 05:15 ABG pO2 102.0 mmHg (80.0-100.0) H 11/15/19 05:15 ABG HCO3 53.5 mmol/L (22-26) H* 11/15/19 05:15 ABG O2 Saturation 98.0 % (90-100) 11/15/19 05:15 ABG Base Excess 24.8 mmol/L (-2.0-2.0) H 11/15/19 05:15 Isaac Test N/a 11/15/19 05:15 A-a Gradient 51.0 mmHg 11/15/19 05:15 FiO2 35.0 11/15/19 05:15 Blood Gas Comments Lucas well ae 11/15/19 05:15 Sodium 134 mmol/L (136-145) L 11/16/19 05:22 Corrected Sodium 134 mmol/L (136-145) L 11/16/19 05:22 Potassium 4.4 mmol/L (3.5-5.1) 11/16/19 05:22 Chloride 90 mmol/L (98-107) L 11/16/19 05:22 Carbon Dioxide 37.0 mmol/L (21-32) H 11/16/19 05:22 BUN 39 mg/dL (7-18) H 11/16/19 05:22 Creatinine 0.83 mg/dL (0.55-1.02) 11/16/19 05:22 Est GFR (MDRD) Af Amer > 60 (>60) 11/16/19 05:22 Est GFR (MDRD) Non-Af > 60 (>60) 11/16/19 05:22 Glucose 119 mg/dL (65-99) H 11/16/19 05:22 POC Glucose (mg/dL) 128 mg/dL (65-99) H 11/16/19 11:48 Calcium 9.1 mg/dL (8.5-10.1) 11/16/19 05:22 Corrected Calcium 10.3 mg/dL (8.5-10.1) H 11/15/19 05:15 Magnesium 1.8 mg/dL (1.7-2.9) 11/15/19 05:15 Total Bilirubin 0.30 mg/dL (0.2-1.0) 11/15/19 05:15 AST 25 Units/L (15-37) 11/15/19 05:15 ALT 18 Units/L (12-78) 11/15/19 05:15 Alkaline Phosphatase 117 Units/L (46-116) H 11/15/19 05:15 Creatine Kinase 104 Units/L (26-192) 11/16/19 08:10 CK-MB (CK-2) 6.3 ng/mL (0-4.0) H* 11/16/19 08:10 CK/CKMB % Calc 6.1 % (<4) 11/16/19 08:10 Troponin I 2.26 ng/mL (0-1.5) H* 11/16/19 08:10 Total Protein 7.2 g/dL (6.4-8.2) 11/15/19 05:15 Albumin 3.3 g/dL (3.4-5.0) L 11/15/19 05:15 Globulin 3.9 g/dL (2.5-4.5) 11/15/19 05:15 Albumin/Globulin Ratio 0.8 Ratio (1.1-2.1) L 11/15/19 05:15 Triglycerides 72 mg/dL (0-150) 11/15/19 05:15 Cholesterol 200 mg/dL (0-200) 11/15/19 05:15 LDL Cholesterol, Calc 76 mg/dL (0-100) 11/15/19 05:15 HDL Cholesterol 110 mg/dL (40-60) H 11/15/19 05:15 Cholesterol/HDL Ratio 1.8 (0.0-5.0) 11/15/19 05:15 Specimen Type Catherized urine 11/14/19 22:35 Urine Color Yellow (YELLOW) 11/14/19 22:35 Urine Appearance Hazy (CLEAR) 11/14/19 22:35 Urine pH 7.0 (5.0 - 8.0) 11/14/19 22:35 Ur Specific [place] 1.020 (1.000-1.030) 11/14/19 22:35 Urine Protein 3+ (NEGATIVE) 11/14/19 22:35 Urine Glucose (UA) Negative (NEGATIVE) 11/14/19 22:35 Urine Ketones 1+ (NEGATIVE) 11/14/19 22:35 Urine Occult Blood 1+ (NEGATIVE) 11/14/19 22:35 Urine Nitrite Positive (NEGATIVE) 11/14/19 22:35 Urine Bilirubin Negative (NEGATIVE) 11/14/19 22:35 Urine Urobilinogen Normal (NORMAL) 11/14/19 22:35 Ur Leukocyte Esterase Negative (NEGATIVE) 11/14/19 22:35 Urine RBC 3-5 /HPF (0-3) A 11/14/19 22:35 Urine WBC 5-10 /HPF (0-5) A 11/14/19 22:35 Ur Squamous Epith Cells Rare /HPF (NEGATIVE) 11/14/19 22:35 Amorphous Sediment 1+ /HPF (NEGATIVE) 11/14/19 22:35 Urine Bacteria 3+ /HPF (NEGATIVE) 11/14/19 22:35 Ur Culture Indicated? Yes/culture set up 11/14/19 22:35 SARS-CoV-2 (PCR) Negative (NEGATIVE) 11/14/19 18:05 Reason For Visit: SOB Discharge Diagnosis All Active Problems (Updated 11/16/19 @ 13:17 by Erika Weinberg) BiPAP (biphasic positive airway pressure) dependence (Acute) Atrial fibrillation with rapid ventricular response (Acute) Multi-vessel coronary artery stenosis (Acute) Respiratory acidosis (Acute) COPD exacerbation (Acute) Acute type 2 respiratory failure (Acute) Chest pain, rule out acute myocardial infarction (Acute) Anxiety (Chronic) Scoliosis (and kyphoscoliosis), idiopathic (Chronic) COPD (chronic obstructive pulmonary disease) (Chronic) CAD (coronary artery disease) (Chronic) Hypertension (Chronic) Back pain (Chronic) DJD (degenerative joint disease) (Chronic) Plan of Treatment: Continue with present treatment and follow up plan. Pt is to keep follow up appointment as instructed and take medications as ordered. Discharge Medications Discharge Medications: amoxicillin Allergy (Verified 10/25/17 16:45) CONTINUE taking the following medications amlodipine 5 mg PO DAILY 11/15/19 [History] atorvastatin 40 mg PO HS 11/15/19 [History] clopidogrel 75 mg PO DAILY 11/15/19 [History] cyclobenzaprine 5 mg PO HS 11/15/19 [History] isosorbide mononitrate 60 mg PO DAILY 11/15/19 [History] lisinopril 10 mg PO DAILY 11/15/19 [History] loratadine 10 mg PO DAILY 11/15/19 [History] nitroglycerin 0.4 mg SUBLINGUAL .Q5MIN3 PRN 11/15/19 [History] pantoprazole 40 mg PO DAILY 11/15/19 [History] prednisone 20 mg PO DAILY 11/15/19 [History] ranolazine 500 mg PO BID 11/15/19 [History]
== END 2019-11-16 18:40 | disposition expired | DRG 191 ==
LOC: ER 15:03 → MED/SURG 17:58
PROVIDERS: ADMIT Obstetrics & Gynecology Obstetrics; ATTEND Internal Medicine
DX: M54.5 Low back pain; I10 Essential (primary) hypertension; F41.8 Other specified anxiety disorders; J44.1 Chronic obstructive pulmonary disease with (acute) exacerbation; M41.20 Other idiopathic scoliosis, site unspecified; E86.0 Dehydration; R09.2 Respiratory arrest; B96.29 Other Escherichia coli [E. coli] as the cause of diseases classified elsewhere; R07.89 Other chest pain; I25.10 Atherosclerotic heart disease of native coronary artery without angina pectoris; M15.9 Polyosteoarthritis, unspecified; E87.2 Acidosis; I48.91 Unspecified atrial fibrillation; Z11.59 Encounter for screening for other viral diseases; Z66 Do not resuscitate
CPT/HCPCS: 36415; 36600; 71010; 71045; 80048; 80053; 80061; 81001; 82550; 82553; 82803; 83735; 84484; 85025; 85610; 85730; 87086; 87088; 87186; 87635; 93005; 94640; 94660; 94760; 96365; 96374; 96375; 99284; A4222; A4618; A7030; C9113; J0282; J0360; J0456; J0696; J1650; J1956; J2060; J2270; J2920; J2930; J3490; J7030; J7050; J7060; J7620